=== PATIENT | female | born 1975 | race Two or more races ===

== ENCOUNTER → 2020-06-19 12:43 | Outpatient (BNVA) | payer OTHER, SELFPAY | PROVIDERS: PCP Internal Medicine; Referring Provider Internal Medicine; Visit Provider Physician Assistant | DX: K59.09 Other constipation (principal); K62.5 Hemorrhage of anus and rectum; K64.8 Other hemorrhoids; K57.90 Diverticulosis of intestine, part unspecified, without perforation or abscess without bleeding; Z98.890 Other specified postprocedural states | CPT/HCPCS: 99214 ==

== ENCOUNTER 2020-12-27 13:03 | Outpatient (REF) | payer OTHER, SELFPAY ==
[2020-12-28 08:02] LABS: HIV AB/AG Nonreactive (Nonreactive); HIV Num 1 0.06 S/CO (0.00-0.99); ~HepC Num1 0.12 S/CO (0.00-0.79); ~Hepatitis C Antibody Nonreactive (Nonreactive)
[2020-12-28 08:14] LABS: HBsAGNum1 0.31 S/CO (0.00-0.99); Hepatitis B Surface Antigen Negative (Negative)
[2020-12-28 08:51] LABS: Syphilis Screen Nonreactive (Nonreactive)
[2020-12-28 09:03] LABS: CT PCR NOT DETECTED (Not Detect.); NG PCR NOT DETECTED (Not Detect.)
[2020-12-28 11:01] LABS: BV Int Neg Control Negative (Negative); BV Int Pos Control Positive (Positive)
[2020-12-31 21:28] LABS: HPV mRNA E6/E7 rflx Not Detected (Not Detected)
== END 2020-12-27 13:04 | disposition home or self-care (01) ==
LOC: HO.LAB 13:03
PROVIDERS: PCP Internal Medicine; Visit Provider Advanced Practice Midwife
DX: Z01.419 Encounter for gynecological examination (general) (routine) without abnormal findings (principal); Z11.51 Encounter for screening for human papillomavirus (HPV); Z11.3 Encounter for screening for infections with a predominantly sexual mode of transmission; Z11.4 Encounter for screening for human immunodeficiency virus [HIV]; K59.09 Other constipation; Z87.42 Personal history of other diseases of the female genital tract; Z20.2 Contact with and (suspected) exposure to infections with a predominantly sexual mode of transmission
CPT/HCPCS: 36415; 86780; 86803; 87340; 87389; 87480; 87491; 87510; 87591; 87624; 87660; 88142

== ENCOUNTER → 2021-08-29 12:30 | Outpatient (BNVA) | payer OTHER, SELFPAY | PROVIDERS: PCP Internal Medicine; Visit Provider Obstetrics & Gynecology ==

== ENCOUNTER 2021-10-29 16:20 | Outpatient (REF) | payer OTHER, SELFPAY ==
--- NOTE | ~2021-10-29 | MM_ITS ---
EXAMINATION: MM SCREENING DIGITAL BREAST TOMOSYNTHESIS, BILATERAL CLINICAL INFORMATION: Screening. Asymptomatic. Bilateral implants 2019. The lifetime risk of breast cancer based on the Tyrer-Cuzick Model is 6%. COMPARISON: Mammography: 09/20/2015 TECHNIQUE: Digital mammography is performed in craniocaudal and mediolateral oblique views along with computer-aided detection (CAD). Digital breast tomosynthesis is performed in implant-displaced craniocaudal and implant-displaced mediolateral oblique views along with computer-aided detection (CAD). Synthesized 2D images are generated from the tomosynthesis. FINDINGS: There are scattered areas of fibroglandular density (ACR BI-RADS breast composition Category b). There are bilateral implants since prior mammography. Implant contours are smooth. There is minor scarring. Breast tissue composition is less dense when compared with prior study. There is no interval mass or architectural abnormality or abnormal calcifications. The axilla are unremarkable. No significant changes. MM/MM tomosynthesis screen imp BI IMPRESSION: No mammographic evidence of malignancy. ASSESSMENT: BI-RADS 2: Benign RECOMMENDATION: Routine annual mammography screening. This patient's information was entered into a reminder system with a target due date for their next mammogram.
== END 2021-10-29 16:21 | disposition home or self-care (01) ==
LOC: HO.MAMMO 16:20
PROVIDERS: PCP Internal Medicine; Visit Provider Internal Medicine
DX: Z12.31 Encounter for screening mammogram for malignant neoplasm of breast (principal)
CPT/HCPCS: 77063; 77067

== ENCOUNTER 2022-02-25 15:26 | Emergency (ER) | payer OTHER, SELFPAY ==
--- NOTE | ~2022-02-25 | US_ITS ---
EXAMINATION: US VENOUS WITH DOPPLER UPPER EXTREMITY, BILATERAL CLINICAL INFORMATION: Swelling COMPARISON: None TECHNIQUE: Ultrasound of the upper extremity is performed using compression sonography and color and pulse Doppler flow with assessment of augmentation of flow. There is also imaging and Doppler assessment of the jugular and subclavian veins. Spectral analysis with color-flow imaging is performed. FINDINGS: Respiratory variation, normal compression, and augmented flow are noted throughout the upper extremity including the axillary, brachial, cubital, and radial and ulnar veins. There is normal flow in the internal jugular and subclavian veins. There is no visible deep or superficial thrombophlebitis. If the patient's symptoms progress, a followup ultrasound in 5 -7 days might be of value to exclude proximal propagation from a nonvisualized distal arm vein. US/US venous duplex UE BI IMPRESSION: No DVT demonstrated in the bilateral upper extremities.
[2022-02-25 15:41] VITALS: PULSE 93; RESP 18; TEMP 36.7; O2SAT 98; BMI 30.7
--- NOTE | 2022-02-25 20:39 | ED.EXTPRO ---
HPI - Extremity Problem General Chief complaint: Extremity Problem Stated complaint: hands and feet post surgery Time Seen by Provider: 02/25/22 20:30 Source: patient Mode of arrival: ambulatory Limitations: no limitations History of Present Illness HPI Narrative: Patient with significant past medical history apparently had liposuction of both upper arms on 02/06 and in [place] comes here for 1 week of increased swelling of both upper extremities and now on lower extremities also swelling in upper extremity is painful no fever no chills no shortness of breath no chest pain patient never had similar problem in the past no abdominal pain Related Data Home Medications Medication Instructions Recorded Confirmed levonorgestrel 20 mcg/24 hours (7 intrauterine / yrs) 52 mg intrauterine device (Mirena) Previous Rx's Medication Instructions Recorded bisacodyl 10 mg rectal suppository 10 mg WA .COMPLEX PRN constipation 06/21/20 (Dulcolax (bisacodyl)) #20 ea hydrochlorothiazide 25 mg tablet 25 mg PO QAM #30 tabs 02/25/22 tramadol 50 mg tablet 50 mg PO Q6H PRN pain #20 tabs 02/25/22 Allergies Allergy/AdvReac Type Severity Reaction Status Date / Time acetaminophen [Tylenol] Allergy Unknown tremors Verified 02/25/22 15:40 Review of Systems Review of Systems: Yes all other systems are reviewed and are negative PMFSH Past Medical History Medical History Diverticulosis large intestine w/o perforation or abscess w/o bleeding Rectal bleeding Surgical History delivery delivered History of breast augmentation History of breast implant Family History Family History Father Unknown family medical history Mother Unknown family medical history Social History Social History Alcohol intake: current Alcohol intake frequency: does not drink Advance Directives: No Advance Directives Information Provided: No Physical Exam Vital Signs: Vital Signs: Last Vital Signs Temp 96.8 F 02/25/22 21:18 Pulse 78 02/25/22 23:41 Resp 18 02/25/22 23:41 BP 161/98 H 02/25/22 23:41 Pulse Ox 100 02/25/22 23:41 O2 Del Method 02/25/22 23:41 BMI result Body Mass Index 30.7 Appearance: Alert. Oriented X3. No acute distress. Eyes no pallor or icterus ENT: Pharynx normal. Oral Mucosa moist Neck: Normal inspection. Neck supple. CVS: Normal heart rate and rhythm. Pulses normal. Respiratory: No respiratory distress. Equal air entry bilateral, no wheezing/rales/rhonchi Abdomen: Soft and nontender. Bowel sounds are present, no mass palpable, no CVA tenderness Skin: Skin warm and dry. Normal skin color. Normal skin turgor. Extremities: 2+ lower extremity edema. No calf tenderness significant swelling bilateral upper extremities with tenderness neurovascular intact Neuro: Oriented X 3. No motor deficit. No sensory deficit.No cerebellar signs , cranial nerves II-XII intact MDM - Extremity (Nontraumatic) MDM Narrative Medical decision making narrative: Patient postop liposuction with swelling of the upper extremity likely from lymphatic damage/lymphedema also has swelling of the leg BNP is normal will give her hydrochlorothiazide and pain medication advised to keep the extremity elevated and follow with PCP if any concerns Lab Data Attestation: I reviewed the patient's lab results. Result diagrams: 02/25/22 21:14 02/25/22 21:14 Labs: Lab Results 02/25/22 02/25/22 02/25/22 Range/Units 21:13 21:13 21:14 WBC 6.8 (4.8-10.8) X10*3/uL RBC 3.01 L (4.20-5.50) X10*6/uL Hgb 8.7 L (12.0-16.0) g/dl Hct 27.7 L (37.0-47.0) % MCV 92.0 (80.0-98.0) fL MCH 28.9 (27.0-33.0) pg MCHC 31.4 (31.0-35.0) g/dl RDW 16.1 H (11.0-16.0) % Plt Count 590 H (160-400) X10*3/uL MPV 8.3 L (9.4-12.3) fL Immature Gran % (Auto) 0.3 (0.0-0.4) % Neut % (Auto) 56.7 (45-73) % Lymph % (Auto) 27.3 (20-40) % Bracken % (Auto) 12.4 H (2-11) % Eos % (Auto) 2.7 (0-4) % Baso % (Auto) 0.6 (0-2) % Lymph # (Auto) 1.9 (1.2-4.9) X10*3/uL Bracken # (Auto) 0.8 (0.1-1.2) X10*3/uL Eos # (Auto) 0.2 (0.0-0.4) X10*3/uL Baso # (Auto) 0.0 (0.0-0.2) X10*3/uL Abs Immat Gran (auto) 0.02 (0.00-0.03) X10*3/uL Absolute Neuts (auto) 3.8 (2.0-8.3) x10*3/uL Absolute Nucleated RBC 0.000 (0.0-0.012) X10*3/uL Nucleated RBC % (auto) 0.0 (0.0-0.2) /100WBC PT 12.4 (9.9-13.0) SEC INR 1.1 (0.9-1.1) APTT 32.4 (24.1-38.0) SEC Sodium (135-145) mmol/L Potassium (3.3-5.1) mmol/L Chloride (96-108) mmol/L Carbon Dioxide (22-29) mmol/L Anion Gap (12-20) BUN (9-16) mg/dL Creatinine (0.5-1.4) mg/dL Estim Creat Clear Calc Estimated GFR Random Glucose (60-115) mg/dL Calcium (8.4-10.2) mg/dL Total Bilirubin (0.0-1.0) mg/dL AST (5-31) U/L ALT (0-31) U/L Alkaline Phosphatase (39-117) U/L B-Natriuretic Peptide 61 (<100) pg/mL Total Protein (6.5-8.0) g/dL Albumin (3.5-5.0) g/dL 02/25/22 02/25/22 Range/Units 21:14 21:14 WBC (4.8-10.8) X10*3/uL RBC (4.20-5.50) X10*6/uL Hgb (12.0-16.0) g/dl Hct (37.0-47.0) % MCV (80.0-98.0) fL MCH (27.0-33.0) pg MCHC (31.0-35.0) g/dl RDW (11.0-16.0) % Plt Count (160-400) X10*3/uL MPV (9.4-12.3) fL Immature Gran % (Auto) (0.0-0.4) % Neut % (Auto) (45-73) % Lymph % (Auto) (20-40) % Bracken % (Auto) (2-11) % Eos % (Auto) (0-4) % Baso % (Auto) (0-2) % Lymph # (Auto) (1.2-4.9) X10*3/uL Bracken # (Auto) (0.1-1.2) X10*3/uL Eos # (Auto) (0.0-0.4) X10*3/uL Baso # (Auto) (0.0-0.2) X10*3/uL Abs Immat Gran (auto) (0.00-0.03) X10*3/uL Absolute Neuts (auto) (2.0-8.3) x10*3/uL Absolute Nucleated RBC (0.0-0.012) X10*3/uL Nucleated RBC % (auto) (0.0-0.2) /100WBC PT Cancelled (9.9-13.0) SEC INR Cancelled (0.9-1.1) APTT (24.1-38.0) SEC Sodium 141 (135-145) mmol/L Potassium 3.8 (3.3-5.1) mmol/L Chloride 109 H (96-108) mmol/L Carbon Dioxide 25 (22-29) mmol/L Anion Gap 11 L (12-20) BUN 9 (9-16) mg/dL Creatinine 0.74 (0.5-1.4) mg/dL Estim Creat Clear Calc 88.8 Estimated GFR > 60 Random Glucose 109 (60-115) mg/dL Calcium 8.3 L (8.4-10.2) mg/dL Total Bilirubin 0.8 (0.0-1.0) mg/dL AST 27 (5-31) U/L ALT 21 (0-31) U/L Alkaline Phosphatase 82 (39-117) U/L B-Natriuretic Peptide (<100) pg/mL Total Protein 6.0 L (6.5-8.0) g/dL Albumin 3.4 L (3.5-5.0) g/dL Discharge Plan Discharge Clinical Impression: Lymphedema, Leg edema Patient Disposition: Home, Self-Care Instructions: Leg Edema (ED), Lymphedema (ED) Additional Instructions: Keep upper extremities elevated Also keep lower extremities elevated Water pill as advised Pain medication as advised Follow with PCP /ER if worsening of the swelling or pain Prescriptions: New hydrochlorothiazide 25 mg tablet 25 mg PO QAM Qty: 30 0RF tramadol 50 mg tablet 50 mg PO Q6H PRN (Reason: pain) Qty: 20 0RF No Action bisacodyl [Dulcolax (bisacodyl)] 10 mg suppository 10 mg WA .COMPLEX PRN (Reason: constipation) Qty: 20 2RF Rx Instructions: 10 mg WA If no BM for 2 days PRN; Mirena 20 mcg/24 hours (7 yrs) 52 mg intrauterine device intrauterine Interventions: ED Discharge Assessment Last Done: 02/25/22 23:51 Discharge Date/Time: 02/25/22 23:51
[2022-02-25 21:18] VITALS: BP 160/96; PULSE 79; RESP 16; TEMP 36; O2SAT 100
[2022-02-25 21:20] LABS: MANUAL DIFF FLAG NO
[2022-02-25 21:28] LABS: Basophils Percent Auto 0.6 % (0-2); Eosinophils Absolute Auto 0.2 X10*3/uL (0.0-0.4); Eosinophils Percent Auto 2.7 % (0-4); Hematocrit 27.7 % (37.0-47.0); Hemoglobin 8.7 g/dl (12.0-16.0); Imm Gran Abs Auto 0.02 X10*3/uL (0.00-0.03); Imm Gran Pct Auto 0.3 % (0.0-0.4); Lymphocytes Absolute Auto 1.9 X10*3/uL (1.2-4.9); Lymphocytes Percent Auto 27.3 % (20-40); Mean Corpuscular HGB Conc 31.4 g/dl (31.0-35.0); Mean Corpuscular Hemoglobin 28.9 pg (27.0-33.0); Mean Platelet Volume 8.3 fL (9.4-12.3); Monocytes Absolute Auto 0.8 X10*3/uL (0.1-1.2); Monocytes Percent Auto 12.4 % (2-11); Neutrophils Absolute Auto 3.8 x10*3/uL (2.0-8.3); Neutrophils Percent Auto 56.7 % (45-73); Platelet Count 590 X10*3/uL (160-400); Red Blood Count 3.01 X10*6/uL (4.20-5.50); Red Cell Distribution Width 16.1 % (11.0-16.0); White Blood Count 6.8 X10*3/uL (4.8-10.8)
[2022-02-25 21:37] LABS: INTERNATIONAL NORM RATIO 1.1 (0.9-1.1); Prothrombin Time 12.4 SEC (9.9-13.0)
[2022-02-25 21:39] LABS: Alanine Aminotransferase 21 U/L (0-31); Albumin Level 3.4 g/dL (3.5-5.0); Alkaline Phosphatase 82 U/L (39-117); Anion Gap 11 (12-20); Aspartate Amino Transferase 27 U/L (5-31); Bilirubin Total 0.8 mg/dL (0.0-1.0); Blood Urea Nitrogen 9 mg/dL (9-16); Calcium 8.3 mg/dL (8.4-10.2); Carbon Dioxide 25 mmol/L (22-29); Chloride 109 mmol/L (96-108); Creatinine Clr Calc Pharmacy 88.8; Estimated Glomerular Filt Rate > 60; Glucose Random 109 mg/dL (60-115); Potassium 3.8 mmol/L (3.3-5.1); Sodium 141 mmol/L (135-145)
[2022-02-25 21:40] LABS: Partial Thromboplastin Time 32.4 SEC (24.1-38.0)
[2022-02-25 21:45] LABS: B Type Natriuretic Peptide 61 pg/mL (<100)
[2022-02-25 23:41] VITALS: BP 161/98; PULSE 78; RESP 18; O2SAT 100
[2022-02-25] MEDS: Ketorolac Tromethamine 30 MG/ML VIAL IVPUSH (23:45)
== END 2022-02-25 23:51 | disposition home or self-care (01) ==
PROVIDERS: Emergency Provider Internal Medicine; PCP Internal Medicine
DX: I97.89 Other postprocedural complications and disorders of the circulatory system, not elsewhere classified (principal); I89.0 Lymphedema, not elsewhere classified; R60.0 Localized edema; M79.621 Pain in right upper arm; M79.622 Pain in left upper arm; Z98.890 Other specified postprocedural states
CPT/HCPCS: 36415; 80053; 83880; 85025; 85610; 85730; 93970; 96374; 99284; J1885

== ENCOUNTER 2022-03-31 16:30 | Emergency (ER) | payer OTHER, SELFPAY ==
--- NOTE | ~2022-03-31 | XR_ITS ---
EXAMINATION: XR CHEST CLINICAL INFORMATION: Cough COMPARISON: 02/23/2020 TECHNIQUE: Frontal view of the chest was obtained. FINDINGS: The lungs are clear with no focal consolidation. No evidence of pneumothorax, pulmonary edema, or pleural effusions. The cardiomediastinal silhouette is unremarkable. No acute osseous findings. XR/XR chest 1V IMPRESSION: No acute cardiopulmonary findings.
[2022-03-31 16:45] VITALS: BP 129/77; PULSE 97; RESP 18; TEMP 36.9; O2SAT 99; BMI 25.6
[2022-03-31 17:11] LABS: COVID-19 Test Negative (Negative); IDNOW Serial# 16C4AD1C
[2022-03-31 22:10] VITALS: BP 140/84; PULSE 109; RESP 16; TEMP 37.2; O2SAT 100
--- NOTE | 2022-03-31 22:53 | ED_ITS ---
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 No sick contacts, no recent travel, no fever, no chills. Patient has been coughing complaining of bilateral chest wall pain and neck pain from coughing continuously for the past 3 days. Related Data Home Medications Medication Instructions Recorded Confirmed levonorgestrel 20 mcg/24 hours (7 intrauterine // yrs) 52 mg intrauterine device (Mirena) Previous Rx's Medication Instructions Recorded bisacodyl 10 mg rectal suppository 10 mg NC .COMPLEX PRN constipation 06/21/20 (Dulcolax (bisacodyl)) #20 ea hydrochlorothiazide 25 mg tablet 25 mg PO QAM #30 tabs 02/25/22 tramadol 50 mg tablet 50 mg PO Q6H PRN pain #20 tabs 02/25/22 codeine 10 mg-guaifenesin 100 mg/5 5 ml PO Q6H PRN cough #120 mL 03/31/22 mL oral liquid (Guaiatussin AC) prednisone 20 mg tablet 20 mg PO BID #10 tabs 03/31/22 Allergies Allergy/AdvReac Type Severity Reaction Status Date / Time acetaminophen [Tylenol] Allergy Unknown tremors Verified 02/25/22 15:40 Review of Systems Review of Systems: All other systems are reviewed and are negative Constitutional: Reports as per HPI and Reports no additional constitutional complaints Eyes: Reports as per HPI and Reports no additional eye complaints Reports system reviewed and no additional complaints, except as documented Cardiovascular: Reports as per HPI and Reports no additional cardiovascular complaints Respiratory: Reports as per HPI and Reports no additional respiratory complaints Gastrointestinal: Reports as per HPI and Reports no additional gastrointestinal complaints Genitourinary: Reports no additional female genitourinary complaints Musculoskeletal: Reports no additional musculoskeletal complaints Skin/Breast: Reports system reviewed and no additional complaints, except as docu Psychiatric: Reports no additional psychiatric complaints Endocrine: Reports no additional endocrine complaints Hematologic/Lymphatic: Reports no additional hematologic/lymphatic complaints Allergic/Immunologic: Reports no additional allergic/immunologic complaints Reports system reviewed and no additional complaints, except as documented and Reports Abnormal speech present PMFSH Past Medical History Medical History Diverticulosis large intestine w/o perforation or abscess w/o bleeding Dyspepsia Internal hemorrhoids Rectal bleeding Surgical History delivery delivered History of breast augmentation History of breast implant Family History Family History Father Unknown family medical history Mother Unknown family medical history Social History Social History Alcohol intake: current Alcohol intake frequency: does not drink Advance Directives: No Advance Directives Information Provided: No Physical Exam ED Vital Signs: Vital Signs - 24 hr 03/31/22 16:45 03/31/22 22:10 Temperature 98.5 F 98.9 F Pulse Rate 97 109 H Respiratory Rate 18 16 Blood Pressure 129/77 140/84 H Pulse Oximetry 99 100 Oxygen Delivery Method Room Air Room Air BMI result Body Mass Index 25.6 vital signs have been reviewed as appeared to be correct. Blood pressure normal. Heart rate normal. Respiration rate normal. Temperature normal. Oxygen saturation normal. Appearance: Alert. Oriented X3. No acute distress. Head: Normal external exam. Normocephalic. Atraumatic. No Gottlieb signs noted. No raccoon eyes noted Eyes: PERRLA. EOMI. Conjunctiva and sclera normal. Eyelids normal. ENT: TM's Normal. Pharynx normal. Uvula midline. Moist mucous membranes. No trismus noted. No drooling noted. No muffled voice noted. Neck: Normal inspection. Neck supple. FROM. No adenopathy. Thyroid Normal. No meningeal signs. No neck mass noted. CVS: Normal heart rate and rhythm. Heart sound normal. No murmurs noted. Pulses normal throughout. Respiratory: No respiratory distress. Painless inspiration. Breath sounds normal. No wheezes/rales/rhonchi noted. Chest nontender. No accessory muscle usage noted or decreased air movement noted. Abdomen: Soft , mild epigastric tenderness, no guarding, no rebound tenderness. Bowel sounds normal in all 4 quadrants. No distention noted. No organomegaly noted. No visible injury noted. Back: No CVA tenderness. Full range of motion noted. Skin: Skin warm and dry. Normal skin color. Normal skin turgor. No rashes/lesions/lacerations noted. Extremities: No lower extremity edema. Extremities exhibit normal range of motion. Extremities nontender. Neuro: Oriented X 3. Cranial nerve exam: II-XII are grossly intact No motor deficit. No sensory deficit. Reflexes normal. Course Course Course Narrative: 46-year-old female came in for persistent coughing for the past 2 days as a result been complaining of headache and body ache and bilateral chest wall pain. Patient has no evidence pneumonia on the chest x-ray, negative COVID test, negative rapid strep. Will prescribe coughing medication and short course of prednisone. Medical Decision Making Lab Data Lab results reviewed: Yes I reviewed the patient's lab results. Labs: Lab Results 03/31/22 03/31/22 03/31/22 Range/Units 16:48 23:13 23:13 COVID-19 (NATE) Negative (Negative) COVID-19 Clin Com See Note Influenza Type A (PCR) NEGATIVE (Negative) Influenza Type B (PCR) NEGATIVE (Negative) RSV RNA Qual (PCR) NEGATIVE (Negative) SARS-CoV-2 RNA (RT-PCR) NEGATIVE (Negative) S. pyogenes GrpA SHARIF Negative (Negative) Imaging Data Chest x-ray: Attestation: I personally reviewed and interpreted this imaging study as follows: Radiologist's impression: No acute thoracic pathology. Discharge Plan Discharge Clinical Impression: Bronchitis Patient Disposition: Home, Self-Care Instructions: Acute Bronchitis (ED) Prescriptions: New codeine-guaifenesin [Guaiatussin AC] 10-100 mg/5 mL liquid 5 ml PO Q6H PRN (Reason: cough) Qty: 120 0RF prednisone 20 mg tablet 20 mg PO BID Qty: 10 0RF No Action bisacodyl [Dulcolax (bisacodyl)] 10 mg suppository 10 mg NC .COMPLEX PRN (Reason: constipation) Qty: 20 2RF Rx Instructions: 10 mg NC If no BM for 2 days PRN; hydrochlorothiazide 25 mg tablet 25 mg PO QAM Qty: 30 0RF tramadol 50 mg tablet 50 mg PO Q6H PRN (Reason: pain) Qty: 20 0RF Mirena 20 mcg/24 hours (7 yrs) 52 mg intrauterine device intrauterine Referrals: Roseanna Franklin MD [Primary Care Provider] -
[2022-03-31 23:38] LABS: Strep A Nucleic Acid Negative (Negative)
[2022-04-01 00:04] LABS: Influenza A PCR NEGATIVE (Negative); Influenza B PCR NEGATIVE (Negative); Resp Syncy Virus RNA Qual PCR NEGATIVE (Negative); SARS COV2 PCR INHOUSE NEGATIVE (Negative)
[2022-04-01 00:35] VITALS: BP 160/94; PULSE 119; RESP 16; TEMP 36.6; O2SAT 100
[2022-04-01] MEDS: guaiFEN/Codeine SF 200/20/10ML 10 ML LIQUID PO (00:38)
[2022-04-01] MEDS: predniSONE 20 MG TABLET PO (00:39)
--- NOTE | 2022-04-01 00:39 | PC.NURSE ---
pt a&o , no respiratory distress or chest pain . Medicated pt per Nov. Reviewed discharge instructions with pt. pt verbalized understanding.
== END 2022-04-01 00:43 | disposition home or self-care (01) ==
PROVIDERS: Emergency Provider Emergency Medicine; PCP Internal Medicine
DX: J40 Bronchitis, not specified as acute or chronic (principal); R06.02 Shortness of breath; R05.9 Cough, unspecified; M79.10 Myalgia, unspecified site; Z20.822 Contact with and (suspected) exposure to COVID-19; Z79.899 Other long term (current) drug therapy
CPT/HCPCS: 0241U; 36415; 71045; 87635; 87651; 99283; 99284

== ENCOUNTER 2024-04-12 17:19 | Outpatient (AMB) | payer OTHER, SELFPAY ==
[2024-04-12 17:21] VITALS: BP 122/80; BMI 27.4
--- NOTE | 2024-04-12 17:21 | A.OFFPC_ITS ---
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 Accompanied by: Self / Same As Patient Allergies acetaminophen [Tylenol] Allergy (Unknown, Verified 04/12/24 17:28) tremors Medication List - Last Reconciled 04/12/24 by Roseanna Kyle MD levonorgestrel (Mirena) intrauterine Tobacco use date assessed: 04/12/24 Dental Screening Dental Screen Date: 04/12/24 Did you have a dental visit in the last 12 months?: Yes Did you have a dental problem in the last 6 months where you did not have access to dental care?: No Was dental information given to patient?: Patient has dentist HPI HPI Comments History of Present Illness Details This is a 48-year-old female that comes complaining of rectal bleeding that started few days ago. She does have history of diverticulosis and hemorrhoids. Colonoscopy was done few years ago as per patient. No chest pain or shortness on breath. No other acute complaint. [facility] Medical History (Updated 04/12/24 @ 17:35 by Roseanna Kyle MD) Dyspepsia Rectal bleeding Internal hemorrhoids Diverticulosis large intestine w/o perforation or abscess w/o bleeding Surgical History History of breast implant History of breast augmentation delivery delivered Family History Father Unknown family medical history Mother Unknown family medical history Social History (Updated 04/12/24 @ 17:31 by Roseanna Kyle MD) Housing: Apartment Alcohol intake: never Patient Tobacco Use Status: Never used Tobacco e-Cigarette/Vaping Use: Never Used Second Hand Smoke Exposure: No service: No Current occupational status: employed Current occupational exposures/hazards: No Cognitive needs: No Hearing needs: No Vision needs: Yes Female Reproductive History Menstrual Age of Menarche: 11 Questionnaire PHQ-9 Over the last 2 weeks, how often have you been bothered by any of the following problems? 1. Little interest or pleasure in doing things: not at all 2. Feeling down, depressed, or hopeless: not at all 3. Trouble falling or staying asleep, or sleeping too much: not at all 4. Feeling tired or having little energy: not at all 5. Poor appetite or overeating: not at all 6. Feeling bad about yourself - or that you are a failure or have let yourself or your family down: not at all 7. Trouble concentrating on things, such as reading the newspaper or watching television: not at all 8. Moving or speaking so slowly that other people could have noticed. Or the opposite - being so fidgety or restless that you have been moving around a lot more than usual: not at all 9. Thoughts that you would be better off or of hurting yourself in some way: not at all Total score: 0 Depression Screening Interpretation: Negative Depression Screening Done: Yes 93777 - PHQ-9 Billing: Yes Source: Developed by Drs. Orestes Powell, Alyx Colbert, Salvatore Tony and colleagues, with an educational wes from [employer]. Thrive Questionnaire Date Thrive assessed: 04/12/24 I am a: Patient What is your living situation today?: I have a steady place to live Within the past 12 months, did the food you bought not last and you didn't have the money to get more?: Never true Within the past 12 months, did you worry whether your food would run out before you got money to buy more?: Never true Do you have trouble paying for medicines?: No Do you have trouble getting transportation to medical appointments?: No Do you have trouble paying your heating and electricity bill?: No Do you have trouble taking care of your child, family member or friend?: No Do you have trouble with day-to-day activities such as bathing, preparing meals, shopping, managing finances, etc.?: No Are you currently unemployed and looking for a job?: No Are you interested in more education?: No Please select the resources that you would like help with: None Currently or been in a relationship where the following occur: No concerns reported THRIVE Score: 0 AUDIT C Alcohol Use Questionnaire (AUDIT-C) 1. How often do you have a drink containing alcohol?: Never Total Score: 0 Score Reviewed/Action Taken: No SHINE-7 AMB Questionnaire SHINE-7 Date SHINE - 7 assessed: 04/12/24 Feeling nervous, anxious, or on edge: 1 = Several days Not being able to stop or control worryin = Not at all Worrying too much about different things: 0 = Not at all Trouble relaxin = Not at all Being so restless that it is hard to sit still: 0 = Not at all Becoming easily annoyed or irritable: 0 = Not at all Feeling afraid as if something awful might happen: 0 = Not at all Total SHINE-7 score (0-4 normal; 5-9 mild; 10-14 moderate; 15-21 severe): 1 Source: Developed by Drs. Orestes Powell, Alyx Colbert, Salvatore Tony and colleagues, with an educational wes from [employer]. SHINE-7 Assessment Billing SHINE-7 Assessment Tool: SHINE-7 Assessment 08275 Review of Systems Const All systems reviewed & are unremarkable except as noted in HPI and below Card Denies chest pain at rest, Denies chest pain with activity, Denies edema, Denies irregular heart rhythm, Denies claudication, Denies dyspnea, Denies dyspnea on exertion, Denies orthopnea, Denies paroxysmal nocturnal dyspnea and Denies slow heart rate Resp Denies cough, Denies dyspnea and Denies dyspnea on exertion GI Denies abdominal pain, Reports hematochezia, Denies change in bowel habits, Denies excessive flatus, Denies nausea and Denies vomiting Physical exam (Primary Care) Vital Signs: Last Vital Signs BP 122/80 04/12/24 17:21 BMI result Body Mass Index 27.4 Tobacco/Smoking Status: Tobacco use Status Tobacco use date assessed 04/12/24 04/12/24 17:27 Patient Tobacco Use Status Never used Tobacco 04/12/24 17:31 e-Cigarette/Vaping Use Never Used 04/12/24 17:31 PHQ-9: PHQ-9 Score PHQ-9: Total score 0 04/12/24 17:32 Depression Screening Interpretation: Negative Thrive Assessment: Date of Thrive Assessment Date Thrive assessed 04/12/24 04/12/24 17:27 Currently or been in a relationship where the following occur: No concerns reported Resp Effort & Inspection: normal respiratory effort Auscultation: clear to auscultation bilaterally Cardio Jugular venous distension: no JVD Rate: regular rate Rhythm: regular rhythm Heart sounds: S1 normal heart sound present and S2 normal heart sound present GI Inspection: Yes normal to inspection Palpation (GI): Soft to palpation and nontender Auscultation: normal bowel sounds Extrem General: Yes full ROM Assessment and Plan Assessment & Plan (1) Rectal bleeding: Code(s): K62.5 - Hemorrhage of anus and rectum Plan: CBC ordered. Referred to Gastroenterology. Orders: Orders Complete Blood Count Auto Diff Today D64.9 - Anemia, unspecified IRON PROFILE Today D64.9 - Anemia, unspecified HIV Ab/Ag Today Z11.3 - Encounter for screening for infections with a predominantly sexual mode of transmission Syphilis Screen Today Z11.3 - Encounter for screening for infections with a predominantly sexual mode of transmission T Spot TB Today Z11.1 - Encounter for screening for respiratory tuberculosis CT NG by PCR Today Z11.3 - Encounter for screening for infections with a predominantly sexual mode of transmission Referrals Gastroenterology Referral K62.5 - Hemorrhage of anus and rectum Coding Level of Care Code Est Pt Level 3 (11835) Complex EM visit Add On G2211 Diagnoses Rectal bleeding K62.5 Additional Codes SHINE-7 Assessment Billing - SHINE-7 Assessment Tool: SHINE-7 Assessment 98582 ([id number]) Time Spent (min) 19
== END 2024-04-12 17:30 | disposition home or self-care (01) ==
LOC: HO.HMGH 17:19
PROVIDERS: PCP Internal Medicine; Visit Provider Internal Medicine
DX: K62.5 Hemorrhage of anus and rectum (principal)
CPT/HCPCS: 99213; G2211

== ENCOUNTER 2024-04-13 12:31 | Outpatient (REF) | payer OTHER, SELFPAY ==
[2024-04-13 13:01] LABS: MANUAL DIFF FLAG NO
[2024-04-13 13:28] LABS: Basophils Absolute Auto 0.1 X10*3/uL (0.0-0.2); Eosinophils Absolute Auto 0.1 X10*3/uL (0.0-0.4); Hematocrit 45.8 % (37.0-47.0); Hemoglobin 15.4 g/dl (12.0-16.0); Imm Gran Abs Auto 0.02 X10*3/uL (0.00-0.03); Imm Gran Pct Auto 0.2 % (0.0-0.4); Lymphocytes Absolute Auto 2.7 X10*3/uL (1.2-4.9); Mean Corpuscular HGB Conc 33.6 g/dl (31.0-35.0); Mean Corpuscular Hemoglobin 28.4 pg (27.0-33.0); Mean Corpuscular Volume 84.3 fL (80.0-98.0); Mean Platelet Volume 9.1 fL (9.4-12.3); Monocytes Absolute Auto 0.7 X10*3/uL (0.1-1.2); Monocytes Percent Auto 9.2 % (2-11); Neutrophils Absolute Auto 4.5 x10*3/uL (2.0-8.3); Neutrophils Percent Auto 55.6 % (45-73); Platelet Count 421 X10*3/uL (160-400); Red Blood Count 5.43 X10*6/uL (4.20-5.50); Red Cell Distribution Width 13.2 % (11.0-16.0)
[2024-04-13 14:03] LABS: Iron 109 mcg/dL (30-160); Percent Iron Saturation 31 % (15-50); Total Iron Binding Capacity 353 mcg/dL (228-428); Unsaturated Iron Binding 244 ug/dL
[2024-04-13 15:47] LABS: CT PCR NOT DETECTED (Not Detect.); NG PCR NOT DETECTED (Not Detect.)
[2024-04-14 03:58] LABS: Syphilis Screen Nonreactive (Nonreactive)
[2024-04-14 04:06] LABS: HIV AB/AG Nonreactive (Nonreactive); HIV Num 1 0.06 S/CO (0.00-0.99)
[2024-04-16 00:39] LABS: TS Negative Control Passed; TS Panel A 0; TS Panel B 1; TS Positive Control Passed; TSpotTB Negative (Negative)
== END 2024-04-13 12:32 | disposition home or self-care (01) ==
LOC: HO.LAB 12:31
PROVIDERS: PCP Internal Medicine; Visit Provider Internal Medicine
DX: Z11.3 Encounter for screening for infections with a predominantly sexual mode of transmission (principal); Z11.1 Encounter for screening for respiratory tuberculosis; D64.9 Anemia, unspecified
CPT/HCPCS: 83540; 85025; 86481; 86780; 87389; 87491; 87591

== ENCOUNTER 2024-06-10 09:04 | Outpatient (AMB) | payer OTHER, SELFPAY ==
[2024-06-10 09:11] VITALS: BP 124/78; PULSE 80; O2SAT 98; BMI 26.7
--- NOTE | 2024-06-10 09:11 | MHC.OFFVIS ---
Vital Signs 06/10/24 09:11 Height 5 ft 2 in Weight 145 lb 15.136 oz BMI 26.7 BP 124/78 Blood Pressure Location Lt brachial Position Sitting Pulse 80 Pulse Source Pulse Oximeter Pulse Oximetry (%) 98 Oxygen Delivery Method Room Air Intake Visit Reasons: Hemorrhage of anus and rectum Intake Note: Julianna presents in office today for a scheduled initial assessment. CC; Pt reports that they have been dealing with sx for years but have been noticing that it has been getting worse over the last few months. Pt states that they did have surgery previously for hemorrhoid treatment; however, they have since returned and are worse than last time. Pt reports issues with constipation, possibly related to hx of diverticulitis that she also experiences intermittently. Pt reports trying preparation H for treatment of the hemorrhoids, however, it has not helped to this point. Corporate Paralegal Required: Yes Corporate Paralegal Services: Corporate Paralegal Offered & Declined Allergies acetaminophen [Tylenol] Allergy (Unknown, Verified 06/10/24 09:12) tremors HPI HPI Hemorrhage of anus and rectum: Details: LAST VISIT WITH ERIC GARDUNO 07/03/2020 A 45-year-old female with chronic constipation, diverticulosis and hemorrhoids follows up after recent colonoscopy,she presents with constipation. We encouraged her to be more consistent with bowel regimen, continue with Colace as well as Linzess as she has had good response to this in the past. She had not received hemorrhoidal cream I have reordered that and hopefully she will get that today that she would be helpful. She will use a suppository today as well as if no BM in 2 days repeat. We reviewed her colonoscopy report as well as pathology that is normal. We reviewed symptoms of diverticulitis to include abdominal pain, fever etc. She understands if abdominal pain were to worsen or she has fever she should go to the ED. She verbalizes her understanding plan. We will refer her to Colorectal for consult of hemorrhoids. She is encouraged to call with questions or concerns. TODAY'S VISIT Colonoscopy was done in May of 2020, 10 years recall. Patient did not require hemorrhoidectomy in 2019 however patient does report that she did had hemorrhoidectomy in 2015. Patient reports that she has been experiencing more rectal bleed. Currently patient is moving her bowels well. Patient is taking vegetables for women capsules and has been moving her bowels well. Patient is also taking pre and probiotics. Patient does not have trouble moving her bowels, however she does experiences postprandial abdominal bloating that is quite frequent. Reports upper and lower abdominal discomfort and cramping. Denies any dyspepsia, dysphagia or odynophagia [facility] Medical History Dyspepsia Rectal bleeding Internal hemorrhoids Diverticulosis large intestine w/o perforation or abscess w/o bleeding Surgical History History of breast implant History of breast augmentation delivery delivered Family History Father Unknown family medical history Mother Unknown family medical history Social History Housing: Apartment Alcohol intake: never Patient Tobacco Use Status: Never used Tobacco e-Cigarette/Vaping Use: Never Used Second Hand Smoke Exposure: No service: No Current occupational status: employed Current occupational exposures/hazards: No Cognitive needs: No Hearing needs: No Vision needs: Yes Female Reproductive History Menstrual Age of Menarche: 11 Assessment & Plan Assessment & Plan (1) Internal hemorrhoids: Code(s): K64.8 - Other hemorrhoids Category: Medical (2) Postprandial abdominal bloating: Code(s): R14.0 - Abdominal distension (gaseous) Plan Proctosol p.r.n., referral to Dr. Holly. Hiram baths with Epsom salts. Discussed with patient low FODMAP diet. List of food recommended as well as list of food to avoid given to patient Orders: Referrals General Surgery Referral K64.8 - Other hemorrhoids Medications: New hydrocortisone 2.5% (Proctosol HC) 1 appl ME BID-QID PRN 30 grams 2RF hemorrhoids K64.9 - Unspecified hemorrhoids Coding Level of Care Code New Pt Level 3 (82339) Diagnoses Internal hemorrhoids K64.8 Postprandial abdominal bloating R14.0 Time Spent (min) 40 Comment 30 minutes spent with patient and additional 10 minutes spent her records
== END 2024-06-10 09:38 | disposition home or self-care (01) ==
PROVIDERS: PCP Internal Medicine; Visit Provider Nurse Practitioner Family
DX: K64.8 Other hemorrhoids (principal); R14.0 Abdominal distension (gaseous)
CPT/HCPCS: 99203

== ENCOUNTER → 2024-06-10 09:04 | Outpatient (BNVA) | payer OTHER, SELFPAY | PROVIDERS: PCP Internal Medicine; Visit Provider Nurse Practitioner Family | DX: K64.8 Other hemorrhoids (principal); R14.0 Abdominal distension (gaseous) | CPT/HCPCS: 99202 ==

== ENCOUNTER 2024-06-23 09:45 | Outpatient (AMB) | payer OTHER, SELFPAY ==
--- NOTE | 2024-06-23 09:52 | A.OFFVIS_ITS ---
Vital Signs 06/23/24 09:58 Height 5 ft 2 in Weight 144 lb BMI 26.3 BP 141/79 H Blood Pressure Location Lt brachial Position Sitting Pulse 71 Intake Visit Reasons: hemorrhoids Intake Note: Patient new consult for [facility] Hemorrhoids Patient cc: anal bleeding due to her hemorrhoids and constipation, abdominal pain and also bloating. Pigment Pusher Required: Yes Pigment Pusher Name: Mara [facility] interpeter Accompanied by: Self / Same As Patient Allergies acetaminophen [Tylenol] Allergy (Unknown, Verified 06/23/24 09:51) tremors Medication List - Last Reconciled 06/23/24 by Rip Holly MD hydrocortisone 2.5% (Proctosol HC) 1 appl NE BID-QID PRN levonorgestrel (Mirena) intrauterine HPI HPI hemorrhoids: Details: [age] year old female referred for hemorrhoid issues. She says that the past 3 years, she has been noticing this frequent prolapse and bleeding from her hemorrhoids. She says that she has to be getting worse lately. She describes seeing a lot of blood frequently with bowel movements. She says that her hemorrhoids prolapse lot as well after bowel movements and she has to wait for this to reduce. This hemorrhoids become swollen for several hours as well she says. She did have hemorrhoidectomy about 8 years ago and she says that the that had helped before. She describes chronic constipation and takes fiber pills. [facility] Medical History (Updated 06/23/24 @ 10:29 by Rip Holly MD) Bleeding hemorrhoids Dyspepsia Rectal bleeding Internal hemorrhoids Diverticulosis large intestine w/o perforation or abscess w/o bleeding Surgical History Hx of hemorrhoidectomy History of breast implant History of breast augmentation delivery delivered Family History Father Unknown family medical history Mother Unknown family medical history Social History Housing: Apartment Alcohol intake: never Patient Tobacco Use Status: Never used Tobacco e-Cigarette/Vaping Use: Never Used Second Hand Smoke Exposure: No service: No Current occupational status: employed Current occupational exposures/hazards: No Cognitive needs: No Hearing needs: No Vision needs: Yes Female Reproductive History Menstrual Age of Menarche: 11 Review of Systems Const Denies chills and Denies fever(s) Card Denies chest pain, Denies dyspnea and Denies dyspnea on exertion Resp Denies cough, Denies dyspnea and Denies dyspnea on exertion GI Reports hematochezia, Denies change in bowel habits and Reports constipation Denies hematuria Musc Denies back pain and Denies limited range of motion Neuro Denies focal weakness and Denies convulsions Psych Denies depression and Denies mood swings Physical Exam Vital Signs: Last Vital Signs Pulse 71 06/23/24 09:58 BP 141/79 H 06/23/24 09:58 BMI result Body Mass Index 26.3 Const General: comfortable and no acute distress Orientation/consciousness: patient oriented x3 Neck Neck: Yes no lymphadenopathy Resp Auscultation: clear to auscultation bilaterally Cardio Rhythm: regular rhythm GI Other: Rectal exam shows prominent external hemorrhoids with some prolapsing internal component. She was unable to tolerate digital exam and anoscopy Palpation (GI): Soft to palpation, nontender and no guarding Neuro General: patient oriented x3 Assessment & Plan Assessment & Plan (1) Bleeding hemorrhoids: Code(s): K64.9 - Unspecified hemorrhoids Category: Medical Plan: She has internal external hemorrhoids with pain, bleeding and frequent prolapse. She wants to proceed with hemorrhoidectomy again. I explained to her the technique of exam under anesthesia and hemorrhoidectomy. I reviewed the risks including but not limited to bleeding, infections, postop pain, as well as the benefits and alternatives. I explained to her what to expect postoperatively. She says she understands and wants to proceed because of the severity of her symptoms Coding Level of Care Code New Pt Level 3 (02414) Diagnoses Bleeding hemorrhoids K64.9
[2024-06-23 09:58] VITALS: BP 141/79; PULSE 71; BMI 26.3
== END 2024-06-23 10:39 | disposition home or self-care (01) ==
PROVIDERS: PCP Internal Medicine; Visit Provider Surgery
DX: K64.9 Unspecified hemorrhoids (principal)
CPT/HCPCS: 99203

== ENCOUNTER → 2024-06-23 09:45 | Outpatient (BNVA) | payer OTHER, SELFPAY | PROVIDERS: PCP Internal Medicine; Visit Provider Surgery | DX: K64.9 Unspecified hemorrhoids (principal); K59.00 Constipation, unspecified; R10.9 Unspecified abdominal pain; R14.0 Abdominal distension (gaseous) | CPT/HCPCS: 99202 ==

== ENCOUNTER 2024-06-30 13:04 | Outpatient (AMB) | payer OTHER, SELFPAY ==
--- NOTE | 2024-06-30 13:06 | MHC.PC.OV ---
Vital Signs 06/30/24 13:07 Height 5 ft 2 in Weight 144 lb BMI 26.3 BP 126/80 Blood Pressure Location Lt brachial Position Sitting Intake Visit Reasons: hemorrhoidectomy/Dr. Holly Content Designer Required: No Accompanied by: Sister Allergies acetaminophen [Tylenol] Allergy (Unknown, Verified 06/30/24 13:13) tremors Medication List - Last Reconciled 06/30/24 by Roseanna Kyle MD hydrocortisone 2.5% (Proctosol HC) 1 appl MA BID-QID PRN levonorgestrel (Mirena) intrauterine Tobacco use date assessed: 06/30/24 Dental Screening Dental Screen Date: 04/12/24 HPI HPI Comments History of Present Illness Details This is a 49-year-old female that comes accompanied by sister for preop evaluation for hemorrhoidectomy scheduled for 07/15/2024. She denies any chest pain or shortness on breath. Has 4-7 Mets of ADLs. Labs and EKG are pending for medical clearance. She also has other multiple complains that she wants to discuss right now. She complains of epigastric pain that bothers her. Also has right 4th and 5th finger numbness that has been present for months. Has bilateral hand pain. Also has low back pain radiating to both legs and associated with bilateral leg numbness that is aggravated by activity. [facility] Medical History Bleeding hemorrhoids Dyspepsia Rectal bleeding Internal hemorrhoids Diverticulosis large intestine w/o perforation or abscess w/o bleeding Surgical History Hx of hemorrhoidectomy History of breast implant History of breast augmentation delivery delivered Family History Father Unknown family medical history Mother Unknown family medical history Social History Housing: Apartment Alcohol intake: never Patient Tobacco Use Status: Never used Tobacco e-Cigarette/Vaping Use: Never Used Second Hand Smoke Exposure: No service: No Current occupational status: employed Current occupational exposures/hazards: No Cognitive needs: No Hearing needs: No Vision needs: Yes Female Reproductive History Menstrual Age of Menarche: 11 Questionnaire Thrive Questionnaire Date Thrive assessed: 04/12/24 SHINE-7 AMB Questionnaire SHINE-7 Date SHINE - 7 assessed: 04/12/24 Source: Developed by Drs. Orestes Powell, Alyx Colbert, Salvatore Tony and colleagues, with an educational wes from [employer]. Review of Systems Const All systems reviewed & are unremarkable except as noted in HPI and below Card Denies chest pain at rest, Denies chest pain with activity, Denies edema, Denies irregular heart rhythm, Denies claudication, Denies dyspnea, Denies dyspnea on exertion, Denies orthopnea, Denies paroxysmal nocturnal dyspnea and Denies slow heart rate Resp Denies cough, Denies dyspnea and Denies dyspnea on exertion GI Reports abdominal pain, Denies change in bowel habits, Denies excessive flatus, Denies nausea and Denies vomiting Musc Reports back pain, Reports arthralgias, Reports numbness and Reports radiating pain into limb Neuro Reports numbness Physical exam (Primary Care) Vital Signs: Last Vital Signs BP 126/80 06/30/24 13:07 BMI result Body Mass Index 26.3 Tobacco/Smoking Status: Tobacco use Status Tobacco use date assessed 06/30/24 06/30/24 13:12 Patient Tobacco Use Status Never used Tobacco 06/30/24 13:12 e-Cigarette/Vaping Use Never Used 06/30/24 13:12 Thrive Assessment: Date of Thrive Assessment Date Thrive assessed 04/12/24 06/30/24 13:12 Resp Effort & Inspection: normal respiratory effort Auscultation: clear to auscultation bilaterally Cardio Jugular venous distension: no JVD Rate: regular rate Rhythm: regular rhythm Heart sounds: S1 normal heart sound present and S2 normal heart sound present Extrem General: Yes full ROM Office Procedures Flu Questionnaire Does the patient have a severe egg allergy?: No Immunizations Fluarix Triv [id number] (PF) 45 mcg (15 mcg x 3)/0.5 mL IM syringe Performing Provider: Roseanna Kyle MD [facility] Documented (not given) by: IDANIA Greer on 06/30/24 13:12 Reason Not Given: Patient Refused Coding Level of Care Code Est Pt Level 4 (18886) Complex EM visit Add On G2211 Diagnoses Pre-op evaluation Z01.818 Epigastric pain R10.13 Hand paresthesia R20.2 Bilateral sciatica M54.31; M54.32 Time Spent (min) 26 Assessment & Plan Assessment & Plan (1) Pre-op evaluation: Code(s): Z01.818 - Encounter for other preprocedural examination Category: Medical Plan: EKG and labs pending for medical clearance. (2) Epigastric pain: Code(s): R10.13 - Epigastric pain Category: Medical Plan: Upper GI series ordered. (3) Hand paresthesia: Code(s): R20.2 - Paresthesia of skin Category: Medical Plan: Nerve conduction study ordered. Referred to Ortho. (4) Bilateral sciatica: Code(s): M54.31 - Sciatica, right side; M54.32 - Sciatica, left side Category: Medical Plan: X-ray ordered. Start physical therapy. Orders: Orders Influenza [id number] Immunization Today Z23 - Encounter for immunization [place] upper GI series Today R10.13 - Epigastric pain XR lumbar spine 2-3V Today M54.31 - Sciatica, right side, M54.32 - Sciatica, left side Comprehensive [place]. Panel Fast Today Z01.818 - Encounter for other preprocedural examination Complete Blood Count Auto Diff Today M54.31 - Sciatica, right side, M54.32 - Sciatica, left side ECG 12 lead EKG Today Z01.818 - Encounter for other preprocedural examination NE nerve conduction velocity Today R20.2 - Paresthesia of skin PT Evaluation and Treatment Today M54.31 - Sciatica, right side, M54.32 - Sciatica, left side Lipid Panel Today E78.5 - Hyperlipidemia, unspecified Referrals Orthopedics Referral M79.641 - Pain in right hand, M79.642 - Pain in left hand
[2024-06-30 13:07] VITALS: BP 126/80; BMI 26.3
== END 2024-06-30 13:33 | disposition home or self-care (01) ==
LOC: HO.HMCH 13:04
PROVIDERS: PCP Internal Medicine; Visit Provider Internal Medicine
DX: Z01.818 Encounter for other preprocedural examination (principal); R10.13 Epigastric pain; R20.2 Paresthesia of skin; M54.31 Sciatica, right side; M54.32 Sciatica, left side; Z23 Encounter for immunization

== ENCOUNTER → 2024-06-30 13:04 | Outpatient (BNVA) | payer OTHER, SELFPAY | PROVIDERS: PCP Internal Medicine; Visit Provider Internal Medicine | DX: Z01.818 Encounter for other preprocedural examination (principal); R10.13 Epigastric pain; R20.2 Paresthesia of skin; M54.31 Sciatica, right side; M54.32 Sciatica, left side; Z28.21 Immunization not carried out because of patient refusal | CPT/HCPCS: 90471; 99212 ==

== ENCOUNTER 2024-07-11 09:00 | Outpatient (REF) | payer OTHER, SELFPAY ==
--- NOTE | ~2024-07-11 | XR_ITS ---
EXAMINATION: XR LUMBAR SPINE 3 VIEWS CLINICAL INFORMATION: Sciatica, right side M54.31. COMPARISON: XR Lumbar spine 01/06/2019 TECHNIQUE: AP and lateral views of the lumbar spine and lateral view of the lumbosacral junction. FINDINGS: Vertebral body heights are normal. No fracture or spondylolisthesis. Mild facet arthrosis at the lumbosacral junction, as before. Intervertebral disc heights are maintained without significant degenerative disc disease. Paraspinal soft tissues are unremarkable. Imaged portions of the sacroiliac joints are normal. Cholecystectomy clips overlie the right upper quadrant. IUD overlies the pelvis. XR/XR lumbar spine 2-3V IMPRESSION: 1. No acute fracture or malalignment. 2. Mild facet arthrosis at the lumbosacral junction, as before. Electronically signed by: Perla Huntley DO 08/26/2024 08:43 AM KAI
[2024-07-11 09:27] LABS: MANUAL DIFF FLAG NO
[2024-07-11 09:37] LABS: Basophils Absolute Auto 0.1 X10*3/uL (0.0-0.2); Basophils Percent Auto 0.9 % (0-2); Eosinophils Absolute Auto 0.2 X10*3/uL (0.0-0.4); Eosinophils Percent Auto 1.7 % (0-4); Hematocrit 43.3 % (37.0-47.0); Hemoglobin 14.7 g/dl (12.0-16.0); Imm Gran Abs Auto 0.04 X10*3/uL (0.00-0.03); Imm Gran Pct Auto 0.4 % (0.0-0.4); Lymphocytes Absolute Auto 2.8 X10*3/uL (1.2-4.9); Lymphocytes Percent Auto 27.9 % (20-40); Mean Corpuscular HGB Conc 33.9 g/dl (31.0-35.0); Mean Corpuscular Hemoglobin 28.8 pg (27.0-33.0); Mean Corpuscular Volume 84.7 fL (80.0-98.0); Mean Platelet Volume 8.8 fL (9.4-12.3); Monocytes Absolute Auto 0.8 X10*3/uL (0.1-1.2); Monocytes Percent Auto 7.9 % (2-11); Neutrophils Absolute Auto 6.2 x10*3/uL (2.0-8.3); Neutrophils Percent Auto 61.2 % (45-73); Platelet Count 438 X10*3/uL (160-400); Red Blood Count 5.11 X10*6/uL (4.20-5.50); Red Cell Distribution Width 12.7 % (11.0-16.0)
[2024-07-11 10:02] LABS: Alanine Aminotransferase 18 U/L (0-31); Albumin Level 4.3 g/dL (3.5-5.0); Alkaline Phosphatase 122 U/L (39-117); Anion Gap 11 (12-20); Aspartate Amino Transferase 21 U/L (5-31); Bilirubin Total 0.6 mg/dL (0.0-1.0); Blood Urea Nitrogen 10 mg/dL (9-16); Calcium 9.9 mg/dL (8.4-10.2); Carbon Dioxide 28 mmol/L (22-29); Chloride 105 mmol/L (96-108); Cholesterol 231 mg/dL (<200); Estimated Glomerular Filt Rate > 60; Glucose Fasting 101 mg/dL (60-99); HDL Cholesterol 37 mg/dL (>40); LDL Cholesterol Calculated 148 mg/dL (<100); Potassium 4.1 mmol/L (3.3-5.1); Sodium 140 mmol/L (135-145); Total Protein 7.8 g/dL (6.5-8.0); Triglycerides 232 mg/dL (<150)
== END 2024-07-11 09:01 | disposition home or self-care (01) ==
LOC: HO.XRAY 09:00
PROVIDERS: PCP Internal Medicine; Visit Provider Internal Medicine
DX: Z01.818 Encounter for other preprocedural examination (principal); E78.5 Hyperlipidemia, unspecified; M54.31 Sciatica, right side; M54.32 Sciatica, left side
CPT/HCPCS: 36415; 72100; 80053; 80061; 85025

== ENCOUNTER → 2024-07-13 08:29 | Outpatient (REF) | payer OTHER, SELFPAY ==
--- NOTE | 2024-07-13 08:32 | ECG_ITS ---
Test Reason : preop Blood Pressure : / mmHG Vent. Rate : 074 BPM Atrial Rate : 074 BPM P-R Int : 146 ms QRS Dur : 082 ms QT Int : 366 ms P-R-T Axes : 020 046 023 degrees QTc Int : 406 ms Normal sinus rhythm Nonspecific T wave abnormality Borderline ECG No previous ECGs available Referred By: Roseanna Kyle Electronically Signed By:LO TEAGUE
== END ==
LOC: HO.CARD 08:29
PROVIDERS: PCP Internal Medicine; Visit Provider Internal Medicine
DX: Z01.818 Encounter for other preprocedural examination (principal)
CPT/HCPCS: 93005

== ENCOUNTER → 2024-07-13 08:32 | Outpatient (BNV) | payer OTHER, SELFPAY | PROVIDERS: PCP Internal Medicine; Visit Provider Internal Medicine | DX: R94.31 Abnormal electrocardiogram [ECG] [EKG] (principal); Z01.810 Encounter for preprocedural cardiovascular examination | CPT/HCPCS: 93010 ==

== ENCOUNTER 2024-07-15 07:49 | Day surgery (SDC) | payer OTHER, SELFPAY ==
[2024-07-12 14:59] VITALS: BMI 26.3
[2024-07-15] VITALS (21 sets, daily range): BP systolic 115–167; BP diastolic 65–99; PULSE 58–99; RESP 10–20; TEMP 36.4–37.1; O2SAT 94–99; BMI 25.8
[2024-07-15] MEDS: Lactated Ringers 1,000 ML 80 ML IVCONT (08:36)
--- NOTE | 2024-07-15 09:11 | MHC.SHP ---
Pre-Procedural Eval Section A - 24 Hr Update-Section A only Date of Service: 07/15/24 The patient is an INPATIENT: No Changes since office visit: No Cold of Flu in the past 2 weeks, No New Medical Problems, No Changes in Medication and No Patient answered all questions The patient has been examined within 24 hours of the surgical procedure. The History & Physical has been completed within 30 days and I have reviewed it.: Yes Section B - Complete if H&P > 30 days Chief Complaint: Unspecified hemorrhoids Allergies: Allergies Allergy/AdvReac Type Severity Reaction Status Date / Time acetaminophen [Tylenol] Allergy Intermediate tremors Verified 07/15/24 08:14 Plan I have reviewed the history and physical and performed a pertinent physical examination on my patient. No changes have occurred unless specified. Time Spent With Patient Time: Total time managing care of this patient today ____ minutes.
--- NOTE | 2024-07-15 09:41 | P.CONAN_ITS ---
HPI - Anesthesia Eval Consult details Narrative: for hemorhoidectomy PMFSH Active Problems Active Problems: All Active Problems Abnormal EKG (Acute) Bilateral sciatica (Acute) Bilateral hand pain (Acute) Hand paresthesia (Acute) Epigastric pain (Acute) Pre-op evaluation (Acute) Screening for STD (sexually transmitted disease) (Acute) Contraceptive management (Acute) IUD check up (Acute) Hx of abnormal cervical Pap smear (Acute) Potential exposure to STD (Acute) Well woman exam with routine gynecological exam (Acute) Chronic constipation (Acute) Bleeding hemorrhoids (Acute) Rectal bleeding (Acute) Dyspepsia (Acute) Internal hemorrhoids (Acute) Past Medical History Medical History (Updated 07/14/24 @ 13:53 by Roseanna Kyle MD) Bleeding hemorrhoids Dyspepsia Rectal bleeding Internal hemorrhoids Diverticulosis large intestine w/o perforation or abscess w/o bleeding Family History Family History Father Unknown family medical history Mother Unknown family medical history Family history of problems with anesthesia: No Surgical History Surgical History (Updated 07/15/24 @ 08:14 by Abeba Cardenas RN) Hx of hemorrhoidectomy History of breast implant History of breast augmentation delivery delivered History of Problems with Anesthesia: No Social History Social History Housing: Apartment Are you a primary critical care physician to a significant other at home: No Do you presently have visiting nurse or other home services: No Alcohol intake: never Patient Tobacco Use Status: Never used Tobacco e-Cigarette/Vaping Use: Never Used Second Hand Smoke Exposure: No Use of substances other than those prescribed or required for medical reasons: No Have you been hit, kicked, punched, or otherwise hurt by someone within the past year? If so, by whom?: No Are you DNR?: No Advance Directives: No Advance Directives Information Provided: No Advance Directives on File: No Recently lost weight without trying: No How much weight loss: Not applicable Eating poorly because of decreased appetite: No Nutrition screen score: 0 Nutrition Risks: No Nutritional Risk Patient : No : No Poor oral hygiene: Yes (Loose tooth upper) service: No Current occupational status: employed Current occupational exposures/hazards: No Cognitive needs: No Hearing needs: No Vision needs: Yes Meds Allergies Allergy/AdvReac Type Severity Reaction Status Date / Time acetaminophen [Tylenol] Allergy Intermediate tremors Verified 07/15/24 08:14 Active Medications: Current Medications Lactated Ringer's (Lr) 1,000 mls @ 80 mls/hr IVCONT .[id number] MY Last Admin: 07/15/24 08:36 Dose: 80 mls/hr Home Medications ?Medication ?Instructions ?Recorded ?Confirmed ?Last Taken ?Type levonorgestrel 21 mcg/24 hr (up to 1 device intrauterine ONCE 08/29/21 07/15/24 Unknown History 8 years) 52 mg intrauterine device (Mirena) Exam Height,Weight and Vital Signs: Height 5 ft 3 in Weight 65.952 kg Last Vital Signs Temp 97.8 F 07/15/24 08:33 Pulse 76 07/15/24 08:33 Resp 16 07/15/24 08:33 BP 115/74 07/15/24 08:33 Pulse Ox 97 07/15/24 08:33 O2 Del Method Room Air 07/15/24 08:33 Airway Mallampati Class: II TM Dist: >3cm Neck ROM: Full Loose/Missing/Broken Teeth: Yes (upper right. Pt was cautioned that they could come out w LMA.) and Upper Heart: ok Lungs: ok Assessment and Plan Assessment Anesthesia Assessment: Anesthesia Plan Discussed and Chart Reviewed Final Anesthetic Review Family History of Problems with Anesthesia: No History of Problems with Anesthesia: No NPO: Yes ASA Class: II Final Preanesthetic Review: No Changes in Pt Med Stat, Meds/Allgs Chart Reviewed, Consent Obtained/Reviewed and Anes Risks/Benef Reviewed Patient Risk: Low Procedure Risk: Intermediate Anesthetic Plan Anesthetic Plan: GA and Agree w/ Assess. and Plan Disposition: Standard PACU
--- NOTE | 2024-07-15 10:44 | P.OP_ITS ---
Operative Note Operative Note Date of Service: 07/15/24 Narrative: Preop diagnosis: Bleeding internal external hemorrhoids Postop diagnosis: The same Procedure: Exam under anesthesia hemorrhoidectomy x2 columns Surgeon: Rip Holly MD The patient is a 49 year female with complaints of prolapse and bleeding with her hemorrhoids. She did have large hemorrhoidal columns on both the left and right side. She understood the technique of hemorrhoidectomy and was aware of the risks, benefits, and alternatives. She had wanted to proceed She was brought to the operating room. She was placed in prone gracy-knife position under general anesthesia via endotracheal tube. The buttocks were retracted with wide tape laterally. The perianal area was prepped and draped in the usual sterile fashion. A surgical time-out was done. The patient received Cefotan 2 g IV preoperatively Examination of the anal orifice revealed large external hemorrhoids on both the left and right side with some prolapse of the internal component. I infiltrated the perianal area with lidocaine 1%. I inserted the Antoine Tucker retractor. I examined the anal canal circumferentially. Again this large hemorrhoidal columns were noted and appeared to be a mix of internal external. There were no other lesions. There was no fissure or ulceration I applied a Shepherd grasper at the hemorrhoidal column on the left to retract this out the field. I made a lecryp-rj-gczrk stitch at its pedicle with a chromic 3-0 past the dentate line. I made an incision around this hemorrhoidal column to the perianal skin with a blade 15. I excised this hemorrhoidal column above the plane of sphincters along this incision with fine scissors. I then closed the incision with a running chromic 3-0 stitch. Additional hemostatic vmcnyb-gs-sajxf sutures were placed for oozing areas . The patient had a p revious hemorrhoidectomy and there was note of significant oozing from the area in view of postop changes. The same procedure was duplicated on the hemorrhoidal column on the right. Again this was retracted with a Shepherd grasper. I made a nlwquw-sd-xyhak stitch at the pedicle. I made an incision around this to the perianal skin with a blade 15. I excised this hemorrhoidal column above the plane of the sphincters with scissors. I closed the incision with a running chromic 3-0 stitch with additional hemostatic sutures placed Once hemostasis was confirmed, I infiltrated the perianal area with Marcaine 0.5% for postop analgesia. I inserted a rolled Gelfoam packing into the anal canal The procedure was completed The patient tolerated the procedure well. There were no immediate c omplications. Initial final counts of sponges and instruments were correct. Estimated blood loss about 75 cc. The patient was extubated without difficulty and transferred to the recovery room with stable vital signs.
[2024-07-15] MEDS: fentaNYL citrate/PF 100 MCG/2 ML VIAL 50 MCG IVPUSH ×4 (10:52→11:44)
[2024-07-15] MEDS: oxyCODONE HCl Immed Release 5 MG TABLET PO (11:52)
== END 2024-07-15 14:46 | disposition home or self-care (01) ==
PROVIDERS: PCP Internal Medicine; Visit Provider Surgery
PROC: (CPT 46260; principal; 2024-07-15 09:30)
DX: K64.8 Other hemorrhoids (principal); K64.4 Residual hemorrhoidal skin tags; K62.5 Hemorrhage of anus and rectum; K59.00 Constipation, unspecified; K57.30 Diverticulosis of large intestine without perforation or abscess without bleeding; R10.13 Epigastric pain; M54.32 Sciatica, left side; M54.31 Sciatica, right side; Z79.899 Other long term (current) drug therapy; Z88.8 Allergy status to other drugs, medicaments and biological substances; Z98.890 Other specified postprocedural states
CPT/HCPCS: 46260; 88304; J1200; J2003; J2704; J2795; J3010

== ENCOUNTER → 2024-07-15 07:49 | Outpatient (BNV) | payer OTHER, SELFPAY | PROVIDERS: PCP Internal Medicine; Visit Provider Surgery | DX: K64.8 Other hemorrhoids (principal) | CPT/HCPCS: 46260 ==

== ENCOUNTER 2024-07-27 14:31 | Outpatient (REF) | payer OTHER, SELFPAY | END 2024-07-27 14:32 | disposition home or self-care (01) | LOC: HO.HOSX 14:31 | DX: M79.641 Pain in right hand (principal); M79.642 Pain in left hand; R20.2 Paresthesia of skin; M65.4 Radial styloid tenosynovitis [de Quervain] | CPT/HCPCS: 20550; 73130; 99202; J1100; J2003 ==

== ENCOUNTER 2024-07-27 15:04 | Outpatient (AMB) | payer OTHER, SELFPAY ==
--- NOTE | 2024-07-27 15:10 | MHC.OFFVIS ---
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 Patient reports this has been coming and going but progessivley worsened in the past 8 months. She expresses she has numbness on the dorsal aspect of her right hand between her 3rd, 4th and 5th MCP joints and metacarpals. Her right hand ring finger locks and so does her left hand thumb. She expresses pain at the base of her left thumb and when it locks on her she has to pop it for relief. Denies past medical treatment to hands. She has not tried the use of braces. She does not like to take a lot of medication so she attempts to just deal with the pain. 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 Patient reports that this numbness and tingling is intermittent, daily, and worse at night. Patient has not had any EMG or nerve conduction study done at this time. Of note, the patient does also have very significant discomfort in the base of the left thumb, that worsens with lifting or cutting things. No other acute complaints or concerns at this time. [facility] Medical History Bleeding hemorrhoids Dyspepsia Rectal bleeding Internal hemorrhoids Diverticulosis large intestine w/o perforation or abscess w/o bleeding Surgical History Hx of hemorrhoidectomy History of breast implant History of breast augmentation delivery delivered Family History Father Unknown family medical history Mother Unknown family medical history Social History Housing: Apartment Are you a primary hearing care practitioner to a significant other at home: No Do you presently have visiting nurse or other home services: No Alcohol intake: never Patient Tobacco Use Status: Never used Tobacco e-Cigarette/Vaping Use: Never Used Second Hand Smoke Exposure: No service: No Current occupational status: employed Current occupational exposures/hazards: No Cognitive needs: No Hearing needs: No Vision needs: Yes Female Reproductive History Menstrual Age of Menarche: 11 Physical Exam Vital Signs: BMI result Body Mass Index 25.7 Extrem Other: Patient is alert, oriented, and in no acute distress. Neuro: Normal sensation of the tips of all digits of the bilateral hand at this time Vascular: Cap refill brisk Pain: Positive Deena on the left Tenderness to palpation of the left radial styloid Patient reports pain with range of motion testing of bilateral hands ROM: Patient is able to make a closed fist and extend all digits of the bilateral hands fully, but reports discomfort when doing so. Skin: No lacerations or abrasions. General: No ecchymosis, erythema, or evidence of infection. Psych: Appears grossly normal Affect normal Attitude cooperative Office Procedures AMB Tendon Injection Tendon Injection [id number] Tendon Sheath Injection All charges added?: Procedure code (CPT) selection complete Assessment & Plan Assessment & Plan (1) Bilateral hand pain: Code(s): M79.641 - Pain in right hand; M79.642 - Pain in left hand Category: Medical (2) Hand paresthesia: Code(s): R20.2 - Paresthesia of skin Category: Medical (3) De Quervain's tenosynovitis, left: Code(s): M65.4 - Radial styloid tenosynovitis [de Quervain] Category: Medical Plan 1. Left de Quervain tenosynovitis Patient is educated about this condition and the treatment options available Patient would like to proceed with steroid injection Injection #1: The risks and benefits of a steroid injection including but not limited to risk of damage to blood vessels, nerves, tendons, infection, skin bleaching, failure to improve symptoms, increased pain, and possible need for further injections or other intervention were discussed with the patient and the patient wishes to proceed with the steroid injection. Once consent was obtained, I aseptically prepped the area over the 1st dorsal compartment of the left thumb. I then injected the 1st dorsal compartment with a combination of 1 mL of dexamethasone (4mg/ml), and 1% lidocaine. The patient tolerated the procedure well with no complications and good resolution of their symptoms prior to leaving clinic. If the patient continues to have pain 6-8 weeks following this injection, they may call to schedule appointment to discuss alternative treatment options 2. Numbness and tingling of bilateral hands Patient was referred for EMG and nerve conduction study to assess the health of the nerves of the bilateral upper extremities Patient was amenable to this plan Patient will follow-up after EMG and nerve conduction study for results review and discussion of further treatment options if indicated Orders: Orders XR hand RT min 3V 07/27/24 M79.641 - Pain in right hand NE nerve conduction velocity 07/27/24 R20.0 - Anesthesia of skin, R20.2 - Paresthesia of skin XR hand LT min 3V 07/27/24 M79.642 - Pain in left hand NE electromyogram (EMG) 07/27/24 R20.0 - Anesthesia of skin, R20.2 - Paresthesia of skin Coding Level of Care Code New Pt Level 3 (62732) Diagnoses Bilateral hand pain M79.641; M79.642 Hand paresthesia R20.2 De Quervain's tenosynovitis, left M65.4 CPT Codes Tendon Injection - Tendon Injection 1: [id number] Tendon Sheath Injection ([id number])
[2024-07-27 15:12] VITALS: BMI 25.7
== END 2024-07-27 15:52 | disposition home or self-care (01) ==
PROVIDERS: PCP Internal Medicine
DX: M65.4 Radial styloid tenosynovitis [de Quervain] (principal); M79.641 Pain in right hand; M79.642 Pain in left hand; R20.2 Paresthesia of skin
CPT/HCPCS: 20550; 99203

== ENCOUNTER 2024-07-28 11:23 | Outpatient (AMB) | payer OTHER, SELFPAY ==
--- NOTE | 2024-07-28 11:31 | A.OFFVIS_ITS ---
Vital Signs 07/28/24 11:38 Height 5 ft 3 in Weight 145 lb BMI 25.7 BP 133/93 H Blood Pressure Location Rt brachial Position Sitting Pulse 79 Intake Visit Reasons: S/P hemorrhoidectomy Intake Note: This patient presents for post-op assessment status post hemorrhoidectomy. Pt c/o; reports pain, reports has not been able to sleep due to pain and discomfort. Production Controller Required: Yes Production Controller Language: Tandem Mill Roller Services: Production Controller Present Production Controller Name: ElvieRenetta Information Interpreted: non-clinical & clinical Accompanied by: Self / Same As Patient Allergies acetaminophen [Tylenol] Allergy (Intermediate, Verified 07/28/24 11:48) tremors HPI HPI S/P hemorrhoidectomy: Details: She underwent hemorrhoidectomy x 2 columns last Jul 15, 2024. She tolerated the procedure well. She says she has some pain still although this is slowly improving. She describes seeing small amounts of blood with BMs. She says say is able to sit down on a chair. [facility] Medical History Bleeding hemorrhoids Dyspepsia Rectal bleeding Internal hemorrhoids Diverticulosis large intestine w/o perforation or abscess w/o bleeding Surgical History Hx of hemorrhoidectomy History of breast implant History of breast augmentation delivery delivered Family History Father Unknown family medical history Mother Unknown family medical history Social History Housing: Apartment Are you a primary child day care provider to a significant other at home: No Do you presently have visiting nurse or other home services: No Alcohol intake: never Patient Tobacco Use Status: Never used Tobacco e-Cigarette/Vaping Use: Never Used Second Hand Smoke Exposure: No service: No Current occupational status: employed Current occupational exposures/hazards: No Cognitive needs: No Hearing needs: No Vision needs: Yes Female Reproductive History Menstrual Age of Menarche: 11 Review of Systems Const Denies chills and Denies fever(s) Card Denies chest pain Resp Denies cough Physical Exam Vital Signs: Last Vital Signs Pulse 79 07/28/24 11:38 BP 133/93 H 07/28/24 11:38 BMI result Body Mass Index 25.7 Const Other: sitting down comfortably General: comfortable and no acute distress Resp Effort & Inspection: normal respiratory effort GI Other: rectal exam-hemorrhoidectomy sites healing well, not infected or indurated, no discharge Assessment & Plan Assessment & Plan (1) Bleeding hemorrhoids: Code(s): K64.9 - Unspecified hemorrhoids Category: Medical Plan: S/P hemorrhoidectomy. Her surgical sites are healing well. She still has pain and asked for narcotic refills. I instructed her to continue hot sitz baths. I will see her for another postop in 1 month. Coding Level of Care Code Global (42320) Diagnoses Bleeding hemorrhoids K64.9
[2024-07-28 11:38] VITALS: BP 133/93; PULSE 79; BMI 25.7
== END 2024-07-28 11:55 | disposition home or self-care (01) ==
PROVIDERS: PCP Internal Medicine; Visit Provider Surgery
DX: K64.9 Unspecified hemorrhoids (principal)
CPT/HCPCS: 99024

== ENCOUNTER → 2024-07-28 11:23 | Outpatient (BNVA) | payer OTHER, SELFPAY | PROVIDERS: PCP Internal Medicine; Visit Provider Surgery | DX: Z48.815 Encounter for surgical aftercare following surgery on the digestive system (principal); Z98.890 Other specified postprocedural states | CPT/HCPCS: 99212 ==

== ENCOUNTER 2024-12-05 12:13 | Outpatient (AMB) | payer OTHER, SELFPAY ==
--- NOTE | 2024-12-05 12:26 | MHC.PC.OV ---
Vital Signs 12/05/24 12:28 Height 5 ft 3 in Weight 149 lb BMI 26.4 BP 136/84 Blood Pressure Location Lt brachial Position Sitting Intake Visit Reasons: PE Intake Note: Patient here for a physical exam Programming Equipment Operator Required: Yes Programming Equipment Operator Language: Taxation Consultant Name: Roseanna Kyle MD Information Interpreted: non-clinical & clinical Accompanied by: Self / Same As Patient Allergies acetaminophen [Tylenol] Allergy (Intermediate, Verified 12/05/24 12:38) tremors Medication List - Last Reconciled 12/05/24 by Roseanna Kyle MD docusate sodium (Colace) 100 mg PO BID hydrocortisone 2.5% (Proctosol HC) 1 appl NC BID-QID PRN ibuprofen 600 mg PO Q6H PRN levonorgestrel (Mirena) 1 device intrauterine ONCE Tobacco use date assessed: 12/05/24 Dental Screening Dental Screen Date: 12/05/24 Did you have a dental visit in the last 12 months?: Yes Did you have a dental problem in the last 6 months where you did not have access to dental care?: No Was dental information given to patient?: Patient has dentist HPI HPI Comments History of Present Illness Details The patient is a 49-year-old female presenting with a routine physical examination and the management of insomnia, depression, hand pain, and follow-up on hypertension and cholesterol. Her insomnia is characterized by difficulty both falling and staying asleep, which persists despite attempts at self-management. She has experienced depression with a PHQ-9 score indicating moderate depression, although she has declined medication or counseling, choosing instead to manage anxiety independently. She reports bilateral hand and arm pain, impacting function to the extent that she resorts to multiple doses of ibuprofen for moderate relief. Previously administered injection treatments provided only minimal temporary pain relief. Cramping throughout the body, resistant to [id number] treatment options, has been associated with a potential magnesium deficiency, which has heretofore remained unassessed. The patient's medical background includes diverticulitis and treated hemorrhoids. Her chronic hypertension remains well-controlled. Previous cholesterol screening indicated marginally elevated levels, necessitating reassessment. Her allergy to Tylenol results in tremors, and she uses Colace to manage constipation. Clinically, she also has a Mirena IUD and has undergone bilateral sections. 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 - Tetanus vaccination due in 2025 - Colonoscopy in 2020 was clear of polyps, next recommended in 2030 - Mammography completed in 2021, remains current - Papanicolaou test up to date, last completed in 2020 - Cholesterol monitoring due to previously elevated levels - Possible magnesium deficiency to be evaluated [facility] Medical History (Updated 12/05/24 @ 14:52 by Roseanna Kyle MD) Bleeding hemorrhoids Dyspepsia Rectal bleeding Internal hemorrhoids Diverticulosis large intestine w/o perforation or abscess w/o bleeding Surgical History Hx of hemorrhoidectomy History of breast implant History of breast augmentation delivery delivered Family History Father Unknown family medical history Mother Unknown family medical history Social History Housing: Apartment Are you a primary daycare worker to a significant other at home: No Do you presently have visiting nurse or other home services: No Alcohol intake: never Patient Tobacco Use Status: Never used Tobacco e-Cigarette/Vaping Use: Never Used Second Hand Smoke Exposure: No service: No Current occupational status: employed Current occupational exposures/hazards: No Cognitive needs: No Hearing needs: No Vision needs: Yes Female Reproductive History Menstrual Age of Menarche: 11 Questionnaire PHQ-9 Over the last 2 weeks, how often have you been bothered by any of the following problems? 1. Little interest or pleasure in doing things: several days 2. Feeling down, depressed, or hopeless: several days 3. Trouble falling or staying asleep, or sleeping too much: nearly every day 4. Feeling tired or having little energy: more than half the days 5. Poor appetite or overeating: several days 6. Feeling bad about yourself - or that you are a failure or have let yourself or your family down: several days 7. Trouble concentrating on things, such as reading the newspaper or watching television: several days 8. Moving or speaking so slowly that other people could have noticed. Or the opposite - being so fidgety or restless that you have been moving around a lot more than usual: several days 9. Thoughts that you would be better off or of hurting yourself in some way: not at all Total score: 11 Depression Screening Interpretation: Positive Depression Screening Follow-up: Existing condition and Follow-up Visit Requested Depression Screening Done: Yes 10073 - PHQ-9 Billing: Yes Source: Developed by Drs. Orestes Powell, Alyx Colbert, Salvatore Tony and colleagues, with an educational wes from [employer]. Thrive Questionnaire Date Thrive assessed: 12/05/24 I am a: Patient What is your living situation today?: I have a steady place to live Within the past 12 months, did the food you bought not last and you didn't have the money to get more?: Never true Within the past 12 months, did you worry whether your food would run out before you got money to buy more?: Never true Do you have trouble paying for medicines?: No Do you have trouble getting transportation to medical appointments?: No Do you have trouble paying your heating and electricity bill?: No Do you have trouble taking care of your child, family member or friend?: No Do you have trouble with day-to-day activities such as bathing, preparing meals, shopping, managing finances, etc.?: I choose not to answer this question Are you currently unemployed and looking for a job?: Yes Are you interested in more education?: No Please select the resources that you would like help with: None Currently or been in a relationship where the following occur: No concerns reported THRIVE Score: 0 AUDIT C Alcohol Use Questionnaire (AUDIT-C) 1. How often do you have a drink containing alcohol?: Never Total Score: 0 Score Reviewed/Action Taken: No SHINE-7 AMB Questionnaire SHINE-7 Date SHINE - 7 assessed: 12/05/24 Feeling nervous, anxious, or on edge: 1 = Several days Not being able to stop or control worryin = Several days Worrying too much about different things: 1 = Several days Trouble relaxin = Several days Being so restless that it is hard to sit still: 1 = Several days Becoming easily annoyed or irritable: 0 = Not at all Feeling afraid as if something awful might happen: 0 = Not at all Total SHINE-7 score (0-4 normal; 5-9 mild; 10-14 moderate; 15-21 severe): 5 Source: Developed by Drs. Orestes Powell, Alyx Colbert, Salvatore Tony and colleagues, with an educational wes from [employer]. SHINE-7 Assessment Billing SHINE-7 Assessment Tool: SHINE-7 Assessment 17856 Review of Systems Const All systems reviewed & are unremarkable except as noted in HPI and below Card Denies chest pain at rest, Denies chest pain with activity, Denies edema, Denies irregular heart rhythm, Denies claudication, Denies dyspnea, Denies dyspnea on exertion, Denies orthopnea, Denies paroxysmal nocturnal dyspnea and Denies slow heart rate Resp Denies cough, Denies dyspnea and Denies dyspnea on exertion GI Denies abdominal pain, Denies change in bowel habits, Denies excessive flatus, Denies nausea and Denies vomiting Denies urinary incontinence, Denies urinary hesitancy and Denies urinary urgency Musc Denies abnormal gait, Denies atrophy, Denies deformity, Reports arthralgias, Denies limited range of motion, Reports muscle cramps and Reports numbness Skin/Breast Denies bleeding lesions, Denies changing lesions and Denies rash Neuro Denies abnormal gait, Denies behavioral changes, Denies lack of coordination and Reports numbness Psych Denies behavioral changes Endo Denies cold intolerance Physical exam (Primary Care) Vital Signs: Last Vital Signs BP 136/84 12/05/24 12:28 BMI result Body Mass Index 26.4 Tobacco/Smoking Status: Tobacco use Status Tobacco use date assessed 12/05/24 12/05/24 12:36 Patient Tobacco Use Status Never used Tobacco 12/05/24 12:27 e-Cigarette/Vaping Use Never Used 12/05/24 12:27 PHQ-9: PHQ-9 Score PHQ-9: Total score 11 12/05/24 12:42 Depression Screening Interpretation: Positive Depression Screening Follow-up: Existing condition and Follow-up Visit Requested Thrive Assessment: Date of Thrive Assessment Date Thrive assessed 12/05/24 12/05/24 12:36 Currently or been in a relationship where the following occur: No concerns reported HENMT Head: Yes normal to inspection, Yes normocephalic and Yes atraumatic Ears: external ears normal Eyes General: appearance normal, both eyes and all related structures Eyelids: Yes eyelids normal Conjunctivae: conjunctivae normal Neck Neck: Yes normal visual inspection and Yes supple Resp Effort & Inspection: normal respiratory effort Auscultation: clear to auscultation bilaterally Cardio Jugular venous distension: no JVD Rate: regular rate Rhythm: regular rhythm Heart sounds: S1 normal heart sound present and S2 normal heart sound present GI Inspection: Yes normal to inspection Palpation (GI): Soft to palpation and nontender Auscultation: normal bowel sounds Skin General skin exam: no rashes or lesions noted Neuro General: no focal motor deficits Extrem General: Yes full ROM Psych Appearance: grossly normal Coding Level of Care Code Est Pt Level 4 (84038) Est Pt Prev Care 40-64y(40341) Diagnoses Physical exam Z00.00 Primary insomnia F51.01 Insomnia type: primary Mild recurrent major depression F33.0 Muscle cramps R25.2 Polyarthralgia M25.50 Additional Codes SHINE-7 Assessment Billing - SHINE-7 Assessment Tool: SHINE-7 Assessment 96709 ([id number]) PHQ-9 - 95094 - PHQ-9 Billing: Yes ([id number]) Time Spent (min) 36 Assessment & Plan Assessment & Plan (1) Physical exam: Code(s): Z00.00 - Encounter for general adult medical examination without abnormal findings Category: Medical (2) Insomnia: Code(s): G47.00 - Insomnia, unspecified Category: Medical Qualifiers: Insomnia type: primary Qualified Code(s): F51.01 - Primary insomnia (3) Mild recurrent major depression: Code(s): F33.0 - Major depressive disorder, recurrent, mild Category: Medical (4) Muscle cramps: Code(s): R25.2 - Cramp and spasm Category: Medical (5) Polyarthralgia: Code(s): M25.50 - Pain in unspecified joint Category: Medical Plan I addressed the patient's depression and insomnia through potential prescription of escitalopram, which targets both conditions and could alleviate associated pain through improved sleep. Cramp investigation will involve magnesium evaluation, as deficiency might explain absent current labs. The patient's hand and arm discomfort dictates an orthopedic follow-up. Cholesterol control will necessitate re-assessment for cardiovascular prevention. Proactive disease maintenance involves adherence to colonoscopy schedules, maintaining vaccination periodicity, and performing due diligence with gynecological care. I advised on lifestyle modifications and stress control with strategic follow-ups planned for observing treatment effects and to assess necessary adjustments. Patient was informed and verbally consented to the use of an ambient scribe for clinic note documentation during this visit. In our discussion, the necessity to holistically manage depression and insomnia was emphasized, considering the potential for utilizing escitalopram due to its advantages for both conditions. We discussed the role of magnesium in muscle health, warranting an evaluation. The potential orthopedic involvement for hand and arm discomfort was stated, advocating appropriate follow-up. We revisited cholesterol's impact on management and explored lifestyle changes to augment control. I provided insights on health maintenance, interpreted ECG results ensuring normalcy but caution over minor anomalies. The patient was informed of the need for follow-up diagnostic measures and management adherence. Orders: Orders Lipid Panel Today E78.5 - Hyperlipidemia, unspecified Comprehensive [place]. Panel Fast Today M25.50 - Pain in unspecified joint Magnesium Today R25.2 - Cramp and spasm Complete Blood Count Auto Diff Today M25.50 - Pain in unspecified joint Rheumatoid Factor Today M25.50 - Pain in unspecified joint MM tomosynthesis screening BI Today Z12.31 - Encounter for screening mammogram for malignant neoplasm of breast Cyclic Citrullinated Peptide Today M25.50 - Pain in unspecified joint Erythrocyte Sedimentation Rate Today M25.50 - Pain in unspecified joint Referrals Rheumatology Referral M25.50 - Pain in unspecified joint Medications: New mirtazapine 15 mg PO BEDTIME 90 tabs 1RF 90 days F33.0 - Major depressive disorder, recurrent, mild, G47.00 - Insomnia, unspecified Patient Instructions: - Consider initiating treatment with escitalopram for both depression and insomnia. - Schedule an evaluation for magnesium levels to address cramping. - Follow up with orthopedic consultation for hand and arm discomfort. - Repeat cholesterol testing and maintain a heart-healthy diet. - Keep up with vaccinations and screenings as scheduled, including colonoscopy in 2030. - Incorporate stress-reducing practices and enhance sleep hygiene. - Return sooner if symptoms worsen or new concerns arise.
[2024-12-05 12:28] VITALS: BP 136/84; BMI 26.4
== END 2024-12-05 12:54 | disposition home or self-care (01) ==
LOC: HO.HMCH 12:14
PROVIDERS: PCP Internal Medicine; Visit Provider Internal Medicine
DX: Z00.00 Encounter for general adult medical examination without abnormal findings (principal); F51.01 Primary insomnia; F33.0 Major depressive disorder, recurrent, mild; R25.2 Cramp and spasm; M25.50 Pain in unspecified joint

== ENCOUNTER → 2024-12-05 12:13 | Outpatient (BNVA) | payer OTHER, SELFPAY | PROVIDERS: PCP Internal Medicine; Visit Provider Internal Medicine | DX: Z00.00 Encounter for general adult medical examination without abnormal findings (principal); F51.01 Primary insomnia; F33.0 Major depressive disorder, recurrent, mild; R25.2 Cramp and spasm; M25.50 Pain in unspecified joint | CPT/HCPCS: 96127; 99212; 99396 ==

== ENCOUNTER 2024-12-22 09:54 | Outpatient (AMB) | payer OTHER, SELFPAY ==
[2024-12-22 10:06] VITALS: BP 120/80; PULSE 84; BMI 27.7
--- NOTE | 2024-12-22 10:06 | MHC.OFFVIS ---
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 Intake Note: New dx abnormal ekg c/o pain in center of chest for a few minute with or without activity Personal Clothing Laundry Aide Required: Yes Personal Clothing Laundry Aide Services: Personal Clothing Laundry Aide Present Personal Clothing Laundry Aide Name: nnamdi Wilkerson Allergies acetaminophen [Tylenol] Allergy (Intermediate, Verified 12/05/24 12:38) tremors Medication List - Last Reconciled 12/22/24 by Arya Rosas MD docusate sodium (Colace) 100 mg PO BID hydrocortisone 2.5% (Proctosol HC) 1 appl MD BID-QID PRN ibuprofen 600 mg PO Q6H PRN levonorgestrel (Mirena) 1 device intrauterine ONCE HPI Comments Details: Thank you for referring Julianna in cardiology consultation today. 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 Despite the washer repairman she is not a very good historian. Patient is a 49 year female with no significant prior cardiovascular risk factors. She is a nonsmoker. No history of hypertension, diabetes, hyperlipidemia, family history of premature coronary artery disease. Patient says for the last 8 months has been intermittent episodes of chest discomfort she describes as area in his chest/pressure in his chest radiating down her left breast as well as in the center of the chest. Symptoms usually happen when she is doing work around the house. Symptoms can also happen sometimes at rest. However she was very vague about this. She was accompanied symptoms of intermittent episodes of palpitation very rapid heart rate which has been bothering her. She was no lightheadedness, syncope. No orthopnea, PND, leg edema. She is currently not on any medications. She had a EKG in June which showed nonspecific ST changes. Comes in today and her EKG shows normal sinus rhythm with diffuse ST sagging with T-wave changes which could suggest ischemia. [facility] Medical History Bleeding hemorrhoids Dyspepsia Rectal bleeding Internal hemorrhoids Diverticulosis large intestine w/o perforation or abscess w/o bleeding Surgical History Hx of hemorrhoidectomy History of breast implant History of breast augmentation delivery delivered Family History Father Unknown family medical history Mother Unknown family medical history Social History Housing: Apartment Are you a primary transitional care nurse to a significant other at home: No Do you presently have visiting nurse or other home services: No Alcohol intake: never Patient Tobacco Use Status: Never used Tobacco e-Cigarette/Vaping Use: Never Used Second Hand Smoke Exposure: No service: No Current occupational status: employed Current occupational exposures/hazards: No Cognitive needs: No Hearing needs: No Vision needs: Yes Female Reproductive History Menstrual Age of Menarche: 11 Review of Systems Const Denies chills, Denies daytime sleepiness, Denies fatigue, Denies fever(s), Denies frequent falls, Denies poor appetite, Denies snoring, Denies stops breathing during sleep, Denies weakness, Denies weight gain and Denies weight loss Eyes Denies loss of vision ENT Denies dizziness and Denies hearing loss Card Reports chest pain, Denies claudication, Denies leg edema, Denies lightheadedness, Reports palpitations, Denies dyspnea, Denies dyspnea on exertion and Denies orthopnea Resp Denies cough, Denies excessive phlegm production, Denies dyspnea, Denies dyspnea on exertion, Denies snoring and Denies wheezing GI Denies abdominal pain, Denies hematochezia, Denies change in bowel habits, Denies nausea and Denies vomiting Denies urinary frequency and Denies dysuria Musc Denies arthralgias, Denies muscle weakness, Denies numbness and Denies other (frequent falls) Skin/Breast Denies nail changes and Denies rash Neuro Denies Abnormal speech present, Denies dizziness, Denies frequent falls, Denies loss of vision, Denies memory loss, Denies numbness and Denies weakness Psych Denies depression and Denies memory loss Endo Denies fatigue and Reports palpitations Chris/Lymph Reports easy bruising and Reports other (anemia) Aller/Immun Denies wheezing Physical Exam Vital Signs: Last Vital Signs Pulse 84 12/22/24 10:06 BP 120/80 12/22/24 10:06 BMI result Body Mass Index 27.7 Const General: cooperative, comfortable, no acute distress, alert, awake and Physically active Nutritional Appearance: average body habitus Orientation/consciousness: patient oriented x3 Limitations: no limitations HEENT Head: Yes normocephalic and Yes atraumatic Neck Neck: Yes trachea midline, Yes supple and Yes no JVD Resp Effort & Inspection: normal respiratory effort Auscultation: clear to auscultation bilaterally Cardio Jugular venous distension: no JVD Palpation: normal PMI Rate: regular rate Rhythm: regular rhythm Heart sounds: S1 normal heart sound present, S2 normal heart sound present, no click, no gallops, no murmurs and no rubs GI Auscultation: normal bowel sounds Skin General skin exam: no rashes or lesions noted Neuro General: patient oriented x3 and no focal motor deficits Speech: No Abnormal speech present Extrem General: Yes no clubbing, cyanosis or edema Psych Appearance: grossly normal Office Procedures EKG Details: EKG shows normal sinus rhythm diffuse ST sagging with T-wave inversion in lateral leads as well as in inferior leads could represent ischemia [id number], Complete Assessment & Plan Assessment & Plan (1) Chest pain: Code(s): R07.9 - Chest pain, unspecified Category: Medical Plan: Patient with 8 month history of chest pain intermittent mostly with exertion but very vague about symptoms at rest. She has not had any symptoms at rest recently. Her EKGs abnormal and would suggest ischemia. She was no major cardiovascular risk factors at this point time. Recommend fasting lipid panel in near future. Will suggest a exercise myocardial perfusion imaging given her symptoms with concerning EKG as soon as possible. Further treatment based on finding. Meanwhile I have taken the liberty to start on low-dose aspirin therapy and metoprolol therapy to reduce myocardial ischemia. Advised to avoid sudden strenuous exercise. Also suggest echocardiogram to evaluate LV systolic and diastolic function to evaluate for any form of hypertrophic disease that could also explain these EKG changes. Given her symptoms of palpitation would suggest her to have a 7 day Holter monitor to assess for the same. Further treatment based on the findings. Will follow up in the clinic in 4 weeks time, sooner p.r.n.. Thank you for allowing me to partake in her care Orders: Orders CA stress test Today R07.9 - Chest pain, unspecified NM cardiolite stress test 2 Weeks R07.9 - Chest pain, unspecified CA echo transthoracic complete Today R07.9 - Chest pain, unspecified Lipid Panel Today R07.9 - Chest pain, unspecified CRP High Sensitivity Today R07.9 - Chest pain, unspecified ECG 7 day holter monitor Today R00.2 - Palpitations Medications: New metoprolol succinate ER (Toprol XL) 50 mg PO DAILY 30 tabs 5RF R00.2 - Palpitations aspirin (Ecotrin Low Strength) 81 mg PO DAILY 30 tabs 5RF R00.2 - Palpitations Coding Level of Care Code New Pt Level 4 (03116) Complex EM visit Add On G2211 Diagnoses Chest pain R07.9 CPT Codes EKG - CPT: 93438-[id number], Complete ([id number])
== END 2024-12-22 10:31 | disposition home or self-care (01) ==
LOC: HO.HCS 09:55
PROVIDERS: PCP Internal Medicine; Visit Provider Internal Medicine Cardiovascular Disease
DX: R07.9 Chest pain, unspecified (principal)
CPT/HCPCS: 93010; 99204; G2211

== ENCOUNTER → 2024-12-22 09:54 | Outpatient (BNVA) | payer OTHER, SELFPAY | PROVIDERS: PCP Internal Medicine; Visit Provider Internal Medicine Cardiovascular Disease | DX: R07.9 Chest pain, unspecified (principal); R00.2 Palpitations | CPT/HCPCS: 93005; 99202 ==

== ENCOUNTER 2024-12-27 08:24 | Outpatient (REF) | payer MEDICAID, SELFPAY ==
[2024-12-27 08:36] LABS: MANUAL DIFF FLAG NO
[2024-12-27 09:38] LABS: Basophils Absolute Auto 0.1 X10*3/uL (0.0-0.2); Basophils Percent Auto 0.7 % (0-2); Eosinophils Absolute Auto 0.2 X10*3/uL (0.0-0.4); Eosinophils Percent Auto 2.2 % (0-4); Hematocrit 42.9 % (37.0-47.0); Hemoglobin 14.9 g/dl (12.0-16.0); Imm Gran Abs Auto 0.05 X10*3/uL (0.00-0.03); Imm Gran Pct Auto 0.5 % (0.0-0.4); Lymphocytes Absolute Auto 3.6 X10*3/uL (1.2-4.9); Lymphocytes Percent Auto 37.5 % (20-40); Mean Corpuscular HGB Conc 34.7 g/dl (31.0-35.0); Mean Corpuscular Hemoglobin 28.3 pg (27.0-33.0); Mean Corpuscular Volume 81.6 fL (80.0-98.0); Monocytes Absolute Auto 0.7 X10*3/uL (0.1-1.2); Monocytes Percent Auto 7.6 % (2-11); Neutrophils Absolute Auto 4.9 x10*3/uL (2.0-8.3); Neutrophils Percent Auto 51.5 % (45-73); Platelet Count 453 X10*3/uL (160-400); Red Blood Count 5.26 X10*6/uL (4.20-5.50); Red Cell Distribution Width 12.9 % (11.0-16.0); White Blood Count 9.6 X10*3/uL (4.8-10.8)
[2024-12-27 10:23] LABS: Cholesterol 257 mg/dL (<200); HDL Cholesterol 40 mg/dL (>40); LDL Cholesterol Calculated 179 mg/dL (<100); Triglycerides 190 mg/dL (<150)
[2024-12-27 10:26] LABS: Alanine Aminotransferase 25 U/L (0-31); Albumin Level 4.2 g/dL (3.5-5.0); Alkaline Phosphatase 107 U/L (39-117); Anion Gap 11 (12-20); Aspartate Amino Transferase 34 U/L (5-31); Bilirubin Total 0.7 mg/dL (0.0-1.0); Blood Urea Nitrogen 14 mg/dL (9-16); Calcium 9.7 mg/dL (8.4-10.2); Carbon Dioxide 26 mmol/L (22-29); Chloride 107 mmol/L (96-108); Cholesterol 247 mg/dL (<200); Estimated Glomerular Filt Rate > 60; Glucose Fasting 87 mg/dL (60-99); HDL Cholesterol 36 mg/dL (>40); LDL Cholesterol Calculated 175 mg/dL (<100); Potassium 3.5 mmol/L (3.3-5.1); Sodium 140 mmol/L (135-145); Total Protein 7.7 g/dL (6.5-8.0); Triglycerides 184 mg/dL (<150)
[2024-12-27 10:32] LABS: Rheumatoid Factor < 13.0 IU/mL (<15.0)
[2024-12-27 10:34] LABS: Erythrocyte Sedimentation Rate 18 MM/HR (0-20)
[2024-12-28 04:08] LABS: CRP High Sensitivity 4.4 mg/L
[2024-12-29 11:43] LABS: Cyclic Citrullinated Peptide <16 UNITS
== END 2024-12-27 08:25 | disposition home or self-care (01) ==
LOC: HO.LAB 08:24
PROVIDERS: Absent Provider Internal Medicine Cardiovascular Disease; PCP Internal Medicine; Visit Provider Internal Medicine
DX: E78.5 Hyperlipidemia, unspecified (principal); M25.50 Pain in unspecified joint; R25.2 Cramp and spasm; R07.9 Chest pain, unspecified
CPT/HCPCS: 36415; 80053; 80061; 83735; 85025; 85652; 86141; 86200; 86431

== ENCOUNTER 2025-01-26 15:06 | Outpatient (REF) | payer OTHER, SELFPAY | END 2025-01-26 15:07 | disposition home or self-care (01) | LOC: HO.MAMMO 15:06 | PROVIDERS: PCP Internal Medicine; Visit Provider Internal Medicine | DX: Z13.89 Encounter for screening for other disorder (principal) ==

== ENCOUNTER 2025-06-15 11:24 | Outpatient (AMB) | payer OTHER, SELFPAY ==
--- NOTE | 2025-06-15 11:25 | A.OFFVIS_ITS ---
Vital Signs 06/15/25 11:26 Height 5 ft 3 in Weight 147 lb 0.773 oz BMI 26.0 BP 140/84 H Blood Pressure Location Lt brachial Position Sitting Pulse 83 Pulse Source Pulse Oximeter Pulse Oximetry (%) 97 Oxygen Delivery Method Room Air Intake Visit Reasons: joint pain Intake Note: Patient presents today for joint pain. Guardian Family Member Required: Yes Guardian Family Member Language: Member Service Representative Services: Guardian Family Member Present Guardian Family Member Name: Isidro [id number] Information Interpreted: non-clinical & clinical Accompanied by: Self / Same As Patient HPI HPI joint pain: Details: Jamaican speaking patient. Video american sign language interpreter used. New patient visit. Chronic foot pain for 2 years preventing patient from sleeping. She has ankle swelling. When she puts her foot on the ground she has pain at the base of her foot. She feels sharp pain. No hx of DM. She continues to have pain in hands. R 3rd and 4th fingers bend backwards. She is experiencing morning stiffness but i s unable to tell me how long the stiffness is lasting. She has not had benefit with Tylenol and ibuprofen. Her maternal aunt has Rheumatoid Arthritis. Labs 12/2024 negative RF and CCP. Medication list reviewed. Medical problems reviewed in expanse. [facility] Medical History Bleeding hemorrhoids Dyspepsia Rectal bleeding Internal hemorrhoids Diverticulosis large intestine w/o perforation or abscess w/o bleeding Surgical History Hx of hemorrhoidectomy History of breast implant History of breast augmentation delivery delivered Family History Father Unknown family medical history Mother Unknown family medical history Social History Housing: Apartment Are you a primary lead care manager to a significant other at home: No Do you presently have visiting nurse or other home services: No Alcohol intake: never Patient Tobacco Use Status: Never used Tobacco e-Cigarette/Vaping Use: Never Used Second Hand Smoke Exposure: No service: No Current occupational status: employed Current occupational exposures/hazards: No Cognitive needs: No Hearing needs: No Vision needs: Yes Female Reproductive History Menstrual Age of Menarche: 11 Physical Exam Vital Signs: Last Vital Signs Pulse 83 06/15/25 11:26 BP 140/84 H 06/15/25 11:26 Pulse Ox 97 06/15/25 11:26 Oxygen Delivery Method Room Air 06/15/25 11:26 BMI result Body Mass Index 26.0 Const Other: General: Comfortable CVS: RRR Respiratory: clear to auscultation bilaterally. Good respiratory effort Skin: No lesions seen MSK: Tender to palpate all MCPs, PIPS, DIPs, wrists, shouldes, knees, left 1st MTP and all right MTPs. Crepitus of right shoulder and right knee. No synovitis. Normal range of motion of upper extremities and lower extremities. Diffuse allodynia. Results Reviewed Results Reviewed: [facility] in [facility] reviewed Bilateral hand x-rays 07/2024 reviewed. Unremarkable. Assessment & Plan Assessment & Plan (1) Myalgia: Code(s): M79.10 - Myalgia, unspecified site Category: Medical (2) Polyarthralgia: Code(s): M25.50 - Pain in unspecified joint Category: Medical Plan 50-year-old female with past medical history of depression, hypertension, hy perlipidemia, chronic pain presents with hand pain and 2 year history of sharp foot pain. She also has diffuse polyarthralgia and allodynia on exam. I am concerned that fibromyalgia is contributing to her pain. She does not have synovitis on exam to suggest active inflammatory arthritis. Anti CCP antibody rheumatoid factor negative. I will workup for early inflammatory arthritis with further imaging and labs. I will also rule out metabolic disease contributing to her pain to rule out thyroid disease and diabetes. She has clinical signs of osteoarthritis with crepitus. We discussed importance of rehabilitation for joint strengthening. 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 After results of workup is completed, I will refer her to PT with plan to follow up with her in 3-4 months. Orders: Orders C Reactive Protein Today M25.50 - Pain in unspecified joint Hemoglobin A1c Today M25.50 - Pain in unspecified joint Aspartate Amino Transferase Today M25.50 - Pain in unspecified joint Creatinine Today M25.50 - Pain in unspecified joint Complete Blood Count Auto Diff Today M25.50 - Pain in unspecified joint XR Foot Akshat 3V Today M25.50 - Pain in unspecified joint Erythrocyte Sedimentation Rate Today M25.50 - Pain in unspecified joint TSH reflex Free T4 Today M25.50 - Pain in unspecified joint Aldolase Today M25.50 - Pain in unspecified joint, M79.10 - Myalgia, unspecified site Creatine Kinase Total Today M25.50 - Pain in unspecified joint, M79.10 - Myalgia, unspecified site Alanine Aminotransferase Today M25.50 - Pain in unspecified joint XR Knee Akshat 3V Today M25.50 - Pain in unspecified joint XR Shoulder Akshat min 2V Today M25.50 - Pain in unspecified joint Coding Level of Care Code New Pt Level 4 (32530) Diagnoses Myalgia M79.10 Polyarthralgia M25.50
[2025-06-15 11:26] VITALS: BP 140/84; PULSE 83; O2SAT 97; BMI 26.0
== END 2025-06-15 12:10 | disposition home or self-care (01) ==
LOC: HO.RHES 11:25
PROVIDERS: PCP Internal Medicine; Visit Provider Internal Medicine Rheumatology
DX: M79.10 Myalgia, unspecified site (principal); M25.50 Pain in unspecified joint
CPT/HCPCS: 99204

== ENCOUNTER → 2025-06-15 11:24 | Outpatient (BNVA) | payer OTHER, SELFPAY | PROVIDERS: PCP Internal Medicine; Visit Provider Internal Medicine Rheumatology | DX: M79.10 Myalgia, unspecified site (principal); M25.50 Pain in unspecified joint | CPT/HCPCS: 99202 ==